=== PATIENT | female | born 1940 | race Caucasian/White ===

== ENCOUNTER 2017-03-28 17:16 | Emergency (ER) | payer MEDICARE ==
[2017-03-28 23:53] LABS: BASO # 0.1 10^3/uL (0.0-0.2); BASO % 0.5 % (0.0-1.0); EOS # 0.2 10^3/uL (0.0-0.50); EOS % 1.9 % (0.0-3.0); HEMATOCRIT 45.2 % (36.0-47.0); HEMOGLOBIN 15.3 g/dl (12.0-16.0); IMMATURE GRANULOCYTE % 0.2 % (0-0); LYMPH % 41.3 % (24.0-44.0); MEAN CORPUSCULAR HEMOGLOBIN 30.2 pg (27.0-33.0); MEAN CORPUSCULAR HGB CONC 33.8 g/dl (32.0-36.5); MEAN CORPUSCULAR VOLUME 89.3 fl (80.0-96.0); MONO # 0.7 10^3/uL (0.0-0.8); MONO % 6.9 % (0.0-5.0); NEUTROPHILS # 4.7 10^3/uL (1.8-7.7); NEUTROPHILS % 49.2 % (36.0-66.0); PLATELET COUNT, AUTOMATED 245 10^3/uL (150-450); RED BLOOD COUNT 5.06 10^6/uL (4.00-5.40); RED CELL DISTRIBUTION WIDTH 13.6 % (11.5-14.5); WHITE BLOOD COUNT 9.6 10^3/uL (4.0-10.0)
[2017-03-29 00:45] LABS: ALBUMIN 3.8 GM/DL (3.2-5.2); ALKALINE PHOSPHATASE 66 U/L (45-117); ALT/SGPT 36 U/L (12-78); ANION GAP 6 MEQ/L (8-16); AST/SGOT 46 U/L (7-37); BILIRUBIN,DIRECT 0.2 MG/DL (0.0-0.2); BILIRUBIN,TOTAL 0.6 MG/DL (0.2-1.0); BLOOD UREA NITROGEN 8 MG/DL (7-18); CARBON DIOXIDE LEVEL 32 MEQ/L (21-32); CHLORIDE LEVEL 103 MEQ/L (98-107); CPK CREATINE PHOSPHOKINASE 72 U/L (26-192); CREATININE FOR GFR 0.84 MG/DL (0.55-1.02); GLOMERULAR FILTRATION RATE > 60.0 (>39); GLUCOSE, FASTING 135 MG/DL (83-110); POTASSIUM SERUM 3.9 MEQ/L (3.5-5.1); SODIUM LEVEL 141 MEQ/L (136-145); TROPONIN I < 0.02 NG/ML (< 0.10)
[2017-03-29 00:46] LABS: MB/CK RELATIVE INDEX 1.38 (< OR =4); NT-PRO BNP 773 PG/ML (<450)
== END 2017-03-29 01:25 | disposition home or self-care (01) ==
LOC: M ED 03-29 01:25
DX: R60.0 Localized edema (principal); I50.9 Heart failure, unspecified; I45.10 Unspecified right bundle-branch block; I44.4 Left anterior fascicular block; I11.0 Hypertensive heart disease with heart failure; K21.9 Gastro-esophageal reflux disease without esophagitis; E11.9 Type 2 diabetes mellitus without complications; E03.9 Hypothyroidism, unspecified; Z79.899 Other long term (current) drug therapy; Z79.891 Long term (current) use of opiate analgesic; Z91.041 Radiographic dye allergy status; Z88.8 Allergy status to other drugs, medicaments and biological substances; Z88.6 Allergy status to analgesic agent; Z88.1 Allergy status to other antibiotic agents; Z91.02 Food additives allergy status; Z88.0 Allergy status to penicillin; Z88.2 Allergy status to sulfonamides
CPT/HCPCS: 71046

== ENCOUNTER → 2017-05-11 | Outpatient (REF) | payer MEDICARE ==
[2017-05-11 20:53] LABS: ALBUMIN 3.9 GM/DL (3.2-5.2); ALBUMIN/GLOBULIN RATIO 0.95 (1.00-1.93); ALKALINE PHOSPHATASE 67 U/L (45-117); ALT/SGPT 32 U/L (12-78); AMYLASE 59 U/L (25-115); ANION GAP 8 MEQ/L (8-16); AST/SGOT 32 U/L (7-37); BILIRUBIN,TOTAL 0.6 MG/DL (0.2-1.0); BLOOD UREA NITROGEN 11 MG/DL (7-18); CALCIUM LEVEL 9.2 MG/DL (8.8-10.2); CARBON DIOXIDE LEVEL 30 MEQ/L (21-32); CHLORIDE LEVEL 104 MEQ/L (98-107); CREATININE FOR GFR 0.97 MG/DL (0.55-1.30); GLOMERULAR FILTRATION RATE 59.4 (>39); GLUCOSE, FASTING 100 MG/DL (70-100); LIPASE 168 U/L (73-393); POTASSIUM SERUM 4.3 MEQ/L (3.5-5.1); SODIUM LEVEL 142 MEQ/L (136-145)
[2017-05-11 21:34] LABS: BASO % 0.5 % (0.0-1.0); EOS # 0.2 10^3/uL (0.0-0.50); EOS % 2.4 % (0.0-3.0); HEMATOCRIT 44.6 % (36.0-47.0); HEMOGLOBIN 14.4 g/dl (12.0-16.0); IMMATURE GRANULOCYTE % 0.2 % (0-3.0); LYMPH # 3.2 10^3/uL (1.5-4.5); LYMPH % 39.1 % (24.0-44.0); MEAN CORPUSCULAR HEMOGLOBIN 29.9 pg (27.0-33.0); MEAN CORPUSCULAR HGB CONC 32.3 g/dl (32.0-36.5); MEAN CORPUSCULAR VOLUME 92.5 fl (80.0-96.0); MONO # 0.7 10^3/uL (0.0-0.8); MONO % 8.7 % (0.0-5.0); NEUTROPHILS % 49.1 % (36.0-66.0); PLATELET COUNT, AUTOMATED 296 10^3/uL (150-450); RED BLOOD COUNT 4.82 10^6/uL (4.00-5.40); RED CELL DISTRIBUTION WIDTH 13.2 % (11.5-14.5); WHITE BLOOD COUNT 8.2 10^3/uL (4.0-10.0)
== END ==
LOC: M LAB REF 19:38
DX: R19.7 Diarrhea, unspecified (principal)
CPT/HCPCS: 82150

== ENCOUNTER → 2017-06-11 | Outpatient (REF) | payer MEDICARE ==
[2017-06-11 14:55] LABS: ERYTHROCYTE SEDIMENTATION RATE 8 mm/hr (0-30)
[2017-06-11 15:01] LABS: C REACTIVE PROTEIN QUANTITATIV < 0.30 MG/DL (0.00-0.30)
== END ==
LOC: M LAB REF 13:28
DX: H57.12 Ocular pain, left eye (principal)
CPT/HCPCS: 86140

== ENCOUNTER → 2017-07-15 | Outpatient (REF) | payer MEDICARE, BC ==
[2017-07-15 12:45] LABS: BASO # 0.1 10^3/uL (0.0-0.2); BASO % 0.8 % (0.0-1.0); EOS # 0.2 10^3/uL (0.0-0.50); EOS % 2.2 % (0.0-3.0); HEMATOCRIT 42.3 % (36.0-47.0); HEMOGLOBIN 14.1 g/dl (12.0-15.5); IMMATURE GRANULOCYTE % 0.3 % (0-3.0); LYMPH # 3.2 10^3/uL (1.5-4.5); LYMPH % 35.3 % (24.0-44.0); MEAN CORPUSCULAR HEMOGLOBIN 30.3 pg (27.0-33.0); MEAN CORPUSCULAR HGB CONC 33.3 g/dl (32.0-36.5); MEAN CORPUSCULAR VOLUME 90.8 fl (80.0-96.0); MONO # 0.7 10^3/uL (0.0-0.8); MONO % 7.9 % (0.0-5.0); NEUTROPHILS # 4.9 10^3/uL (1.8-7.7); NEUTROPHILS % 53.5 % (36.0-66.0); PLATELET COUNT, AUTOMATED 242 10^3/uL (150-450); RED BLOOD COUNT 4.66 10^6/uL (4.00-5.40); RED CELL DISTRIBUTION WIDTH 13.4 % (11.5-14.5); WHITE BLOOD COUNT 9.1 10^3/uL (4.0-10.0)
[2017-07-15 14:15] LABS: ALBUMIN 3.7 GM/DL (3.2-5.2); ALKALINE PHOSPHATASE 64 U/L (45-117); ALT/SGPT 34 U/L (12-78); ANION GAP 7 MEQ/L (8-16); AST/SGOT 40 U/L (7-37); BILIRUBIN,TOTAL 0.4 MG/DL (0.2-1.0); BLOOD UREA NITROGEN 11 MG/DL (7-18); CALCIUM LEVEL 8.7 MG/DL (8.8-10.2); CARBON DIOXIDE LEVEL 29 MEQ/L (21-32); CHLORIDE LEVEL 108 MEQ/L (98-107); CHOLESTEROL LEVEL 167 MG/DL (<200); CHOLESTEROL RISK RATIO 5.758 (<5); CREATININE FOR GFR 0.97 MG/DL (0.55-1.30); ESTIMATED AVERAGE GLUCOSE 143 MG/DL (60-110); FREE T4 1.08 NG/DL (0.76-1.46); GLOMERULAR FILTRATION RATE 59.4 (>39); GLUCOSE, FASTING 121 MG/DL (70-100); HDL CHOLESTEROL 29 MG/DL (>40); HEMOGLOBIN A1c 6.6 %; LDL CHOLESTEROL 94.8 MG/DL (<100); NON-HDL-C 138 MG/DL; POTASSIUM SERUM 4.6 MEQ/L (3.5-5.1); SODIUM LEVEL 144 MEQ/L (136-145); TOTAL PROTEIN 7.8 GM/DL (6.4-8.2); TRIGLYCERIDES LEVEL 216 MG/DL (<150)
== END ==
LOC: M SFHCADAM 10:57
DX: Z00.00 Encounter for general adult medical examination without abnormal findings (principal); E11.9 Type 2 diabetes mellitus without complications
CPT/HCPCS: 84443

== ENCOUNTER → 2017-07-30 | Outpatient (CLI) | payer MEDICARE, BC | LOC: M RAD 14:03 | DX: D35.2 Benign neoplasm of pituitary gland (principal); I67.82 Cerebral ischemia | CPT/HCPCS: 70450 ==

== ENCOUNTER → 2017-08-16 | Outpatient (REF) | payer MEDICARE ==
[2017-08-16 13:48] LABS: RHEUMATOID FACTOR QUANT < 10.0 IU/ML (<15.0)
[2017-08-16 14:04] LABS: ERYTHROCYTE SEDIMENTATION RATE 10 mm/hr (0-30)
[2017-08-17 14:13] LABS: ANTI DOUBLE STRAND-DNA AB 1 IU/mL (0-9); ANTINUCLEAR ANTIBODIES DIRECT Positive (Negative); RNP ANTIBODIES <0.2 AI (0.0-0.9); SJOGREN'S ANTI SS-A >8.0 AI (0.0-0.9); SJOGREN'S ANTI SS-B <0.2 AI (0.0-0.9); SMITH ANTIBODIES <0.2 AI (0.0-0.9)
== END ==
LOC: M LABNEURO 09:56
DX: G43.909 Migraine, unspecified, not intractable, without status migrainosus (principal)
CPT/HCPCS: 36415

== ENCOUNTER → 2018-02-14 | Outpatient (REF) | payer MEDICARE, BC ==
[2018-02-14 20:04] LABS: BASO # 0.1 10^3/uL (0.0-0.2); BASO % 0.6 % (0.0-1.0); EOS # 0.1 10^3/uL (0.0-0.50); EOS % 1.4 % (0.0-3.0); HEMATOCRIT 43.8 % (36.0-47.0); HEMOGLOBIN 14.2 g/dl (12.0-15.5); IMMATURE GRANULOCYTE % 0.1 % (0-3.0); LYMPH # 3.8 10^3/uL (1.5-4.5); LYMPH % 44.9 % (24.0-44.0); MEAN CORPUSCULAR HGB CONC 32.4 g/dl (32.0-36.5); MEAN CORPUSCULAR VOLUME 92.6 fl (80.0-96.0); MONO # 0.8 10^3/uL (0.0-0.8); NEUTROPHILS # 3.8 10^3/uL (1.8-7.7); PLATELET COUNT, AUTOMATED 251 10^3/uL (150-450); RED BLOOD COUNT 4.73 10^6/uL (4.00-5.40); RED CELL DISTRIBUTION WIDTH 13.8 % (11.5-14.5); WHITE BLOOD COUNT 8.6 10^3/uL (4.0-10.0)
[2018-02-14 20:21] LABS: ESTIMATED AVERAGE GLUCOSE 146 MG/DL (60-110); HEMOGLOBIN A1c 6.7 %
[2018-02-14 20:39] LABS: ALKALINE PHOSPHATASE 57 U/L (45-117); ALT/SGPT 21 U/L (12-78); ANION GAP 9 MEQ/L (8-16); AST/SGOT 30 U/L (7-37); BILIRUBIN,TOTAL 0.4 MG/DL (0.2-1.0); BLOOD UREA NITROGEN 7 MG/DL (7-18); CALCIUM LEVEL 8.2 MG/DL (8.8-10.2); CARBON DIOXIDE LEVEL 32 MEQ/L (21-32); CHLORIDE LEVEL 102 MEQ/L (98-107); CREATININE FOR GFR 0.97 MG/DL (0.55-1.30); GLOMERULAR FILTRATION RATE 59.3 (>39); GLUCOSE, FASTING 126 MG/DL (70-100); POTASSIUM SERUM 3.3 MEQ/L (3.5-5.1); SODIUM LEVEL 143 MEQ/L (136-145)
[2018-02-14 20:40] LABS: ALBUMIN 3.7 GM/DL (3.2-5.2); TOTAL PROTEIN 7.4 GM/DL (6.4-8.2)
== END ==
LOC: M SFHCADAM 15:16
DX: E11.9 Type 2 diabetes mellitus without complications (principal); R68.89 Other general symptoms and signs; N95.1 Menopausal and female climacteric states
CPT/HCPCS: 84443

== ENCOUNTER 2018-09-29 18:57 | Inpatient (IN) | payer BC, MEDICARE ==
[~2018-09-29] VITALS: Ht 167.6 cm; Wt 66.3 kg
[~2018-09-29 18:57] MED LIST: ALPR2TAB3 PO; CLON0.2T PO; GAS-125C PO; GLIP10TA6 PO; LASI20TA3 PO; METO100T5 PO; NORC1TAB7 PO; OMEP40CA2 PO; RANI15TA PO; SYNT50TA PO; VITA-182 PO; VITA50005 PO
[2018-09-29 19:46] LABS: BASO # 0.1 10^3/uL (0.0-0.2); BASO % 0.5 % (0.0-1.0); EOS % 0.4 % (0.0-3.0); HEMATOCRIT 45.7 % (36.0-47.0); HEMOGLOBIN 15.4 g/dl (12.0-15.5); LYMPH # 3.6 10^3/uL (1.5-4.5); LYMPH % 35.4 % (24.0-44.0); MEAN CORPUSCULAR HEMOGLOBIN 31.6 pg (27.0-33.0); MEAN CORPUSCULAR HGB CONC 33.7 g/dl (32.0-36.5); MEAN CORPUSCULAR VOLUME 93.8 fl (80.0-96.0); MONO % 10.2 % (0.0-5.0); NEUTROPHILS # 5.4 10^3/uL (1.8-7.7); NEUTROPHILS % 53.3 % (36.0-66.0); PLATELET COUNT, AUTOMATED 294 10^3/uL (150-450); RED BLOOD COUNT 4.87 10^6/uL (4.00-5.40); WHITE BLOOD COUNT 10.1 10^3/uL (4.0-10.0)
[2018-09-29 19:55] LABS: INR 1.13; PROTHROMBIN TIME 14.2 SECONDS (11.8-14.0)
[2018-09-29 19:56] LABS: PARTIAL THROMBOPLASTIN TIME 37.7 SECONDS (25.0-38.4)
[2018-09-29 20:24] LABS: ALBUMIN 3.9 GM/DL (3.2-5.2); BILIRUBIN,DIRECT 0.3 MG/DL (0.0-0.2); BILIRUBIN,TOTAL 0.9 MG/DL (0.2-1.0); CALCIUM LEVEL 9.5 MG/DL (8.8-10.2); CREATININE FOR GFR 1.04 MG/DL (0.55-1.30); GLOMERULAR FILTRATION RATE 54.6 (>39); MB/CK RELATIVE INDEX 1.35 (< OR =4); POTASSIUM SERUM 3.7 MEQ/L (3.5-5.1); THYROID STIMULATING HORMONE 4.61 uIU/ML (0.358-3.740); TOTAL PROTEIN 8.1 GM/DL (6.4-8.2); TROPONIN I 0.29 NG/ML (< 0.10)
[2018-09-29] MEDS ORDERED: LABETALOL HCL 100 MG/20 ML VIAL IV STA (20:28)
[2018-09-29] MEDS ORDERED: ALPR0.5T3 PO (20:53)
[2018-09-29] MEDS ORDERED: CLON-412 PO (20:53)
[2018-09-29] MEDS ORDERED: OMEP-221 PO (20:56)
[2018-09-29] MEDS ORDERED: NORT10CA2 PO (20:56)
[2018-09-29] MEDS: ATORVASTATIN 20 MG TAB PO SCH (21:00)
[2018-09-29] MEDS: HumaLOG INSULIN (NovoLOG) PER UNIT SC SCH (21:00)
--- NOTE | 2018-09-29 21:56 | REPVR ---
EXAM: CT Head Without Contrast EXAM DATE/TIME: 09/29/2018 8:51 PM CLINICAL HISTORY: 78 years old, female; Altered mental status/memory loss; Confusion or disorientation; Additional info: HTN altered TECHNIQUE: Imaging protocol: Computed tomography images of the head without contrast. Radiation optimization: All CT scans at this facility use at least one of these dose optimization techniques: automated exposure control; mA and/or kV adjustment per patient size (includes targeted exams where dose is matched to clinical indication); or iterative reconstruction. COMPARISON: CT Head without contrast 07/30/2017 2:25 PM FINDINGS: Brain: Patchy areas of hypoattenuation in the periventricular and subcortical white matter, consistent with chronic small vessel ischemic disease. No CT evidence of acute intracranial hemorrhage or acute territorial infarction. No significant mass effect or midline shift. Basal cisterns patent. Ventricles: Prominence of the cortical sulci, cisterns and ventricular system, consistent with cerebral and cerebellar volume loss. Bones/joints: No acute osseous abnormality. Sinuses: Mild ethmoid mucosal thickening. Mastoid air cells: Grossly unremarkable. Soft tissues: Grossly unremarkable. Vasculature: Mild calcific atherosclerotic disease in the cavernous internal carotid arteries. IMPRESSION: 1. No CT evidence of acute intracranial pathology. 2. Additional findings, as above. Electronically signed by: Dane Bueno On 09/29/2018 21:56:30 PM
--- NOTE | 2018-09-29 22:03 | REPVR ---
EXAM: CT Abdomen and Pelvis Without Contrast EXAM DATE/TIME: 09/29/2018 8:51 PM CLINICAL HISTORY: 78 years old, female; Abdominal pain; Generalized; Additional info: Generalized abd pain TECHNIQUE: Imaging protocol: Axial computed tomography images of the abdomen and pelvis without contrast. Radiation optimization: All CT scans at this facility use at least one of these dose optimization techniques: automated exposure control; mA and/or kV adjustment per patient size (includes targeted exams where dose is matched to clinical indication); or iterative reconstruction. COMPARISON: NM-Gastric Emptying Study 07/16/2015 12:31 PM FINDINGS: Lungs: Minimal linear stranding and groundglass at the lung bases, likely due to atelectasis and/or scarring. Mediastinum: Small hiatal hernia. Liver: Unremarkable. Gallbladder and bile ducts: Status post cholecystectomy. No biliary ductal dilatation. Pancreas: Unremarkable. Spleen: Unremarkable. Adrenals: Unremarkable. Kidneys and ureters: No mass. No radiodense calculi. No hydronephrosis. Stomach and bowel: No bowel wall thickening. No obstruction. No pneumatosis. Appendix: Appendix not identified with certainty but no right lower quadrant inflammatory change to suggest acute appendicitis. Intraperitoneal space: No free fluid. No organized fluid collection. No free air. Vasculature: Moderate atherosclerotic disease. Multifocal aneurysmal dilatation of the infrarenal abdominal aorta to approximately 3.4 cm. Lymph nodes: No pathologically enlarged lymph nodes. Bladder: Unremarkable. Reproductive: Status post hysterectomy. Bones/joints: No acute osseous abnormality. Osteopenia. Mild degenerative changes. Soft tissues: Unremarkable. IMPRESSION: 1. Limited noncontrast examination without CT evidence of acute intra-abdominal or pelvic pathology. 2. Additional findings, as above. Electronically signed by: Dane Bueno On 09/29/2018 22:02:44 PM
--- NOTE | 2018-09-29 22:35 | HPEPDOC ---
General Date of Admission Date of Service: Sep 29, 2018 Chief Complaint The patient is a 78-year-old female admitted with a reason for visit of Nausea. History of Present Illness Patient is a 78-year-old female, past medical history significant for hypertension, type 2 diabetes mellitus, obesity, hypothyroidism, presenting to the emergency room on account of generalized weakness, shaking, and generalized malaise. History was provided by family at bedside given patient's underlying dementia. Daughter reports patient's blood pressure had been running high and patient had not been feeling well for about 3 days now. They were uncertain if she had been taking her medications for blood pressure control as directed due to dementia. Blood glucose had also been elevated at home. They took her to urgent care where blood pressure was found to be 205/153. EKG was abnormal and patient was sent to the emergency room by EMS services for further evaluation. Patient's daughter reports patient had symptoms of generalized weakness, malaise, since Wednesday. But she still went on a boat cruise with other family members and on return had significant nausea without vomiting. She also complained of abdominal pain and was getting increasingly incoherent worse than her known baseline. On assessment, patient complains of headache, tiredness, but denies chest pain or shortness of breath In the emergency room, patient was given labetalol, with some improvement of her blood pressure. A CT scan of brain was negative for acute intracranial pathology. CT abdomen and pelvis completed without contrast was negative for acute intact, abdominal or pelvic pathology. . Home Medications Scheduled Alprazolam (Alprazolam) 0.5 Mg Tablet, 0.5 MG PO Q6H, (Reported) Clonidine HCl (Clonidine HCl) 0.1 Mg Tablet, 0.1 MG PO BID, (Reported) Glipizide (Glipizide) 10 Mg Tab, 10 MG PO DAILY, (Reported) Levothyroxine Sodium (Synthroid) 50 Mcg Tab, 50 MCG PO DAILY, (Reported) Metoprolol Tartrate (Metoprolol Tartrate) 100 Mg Tab, 100 MG PO BID, (Reported) Nortriptyline HCl (Nortriptyline HCl) 10 Mg Capsule, 20 MG PO QHS, (Reported) Omeprazole (Omeprazole) 40 Mg Capsule.dr, 40 MG PO DAILY, (Reported) Scheduled PRN Hydrocodone/Acetaminophen ([place] 5-325 Tablet) 1 Tab Tab, 1 TAB PO TID PRN for PAIN, (Reported) Allergies Coded Allergies: Contrast Media (Verified Allergy, Unknown, 08/01/15) Penicillins (Verified Allergy, Unknown, 09/29/18) Sulfa (Sulfonamide Antibiotics) (Verified Allergy, Unknown, 09/29/18) acetaminophen (Verified Allergy, Unknown, 09/29/18) amlodipine (Verified Allergy, Unknown, 09/29/18) butorphanol (Verified Allergy, Unknown, 09/29/18) dexlansoprazole (Verified Allergy, Unknown, 09/29/18) diphenhydramine (Verified Allergy, Unknown, 09/29/18) erythromycin base (Verified Allergy, Unknown, 09/29/18) ezetimibe (Verified Allergy, Unknown, 09/29/18) gemfibrozil (Verified Allergy, Unknown, 09/29/18) hydrochlorothiazide (Verified Allergy, Unknown, 09/29/18) iodine (Verified Allergy, Unknown, 09/29/18) ketorolac (Verified Allergy, Unknown, 09/29/18) lisinopril (Verified Allergy, Unknown, 09/29/18) losartan (Verified Allergy, Unknown, 09/29/18) moxifloxacin (Verified Allergy, Unknown, 09/29/18) potassium (Verified Allergy, Unknown, 09/29/18) pregabalin (Verified Allergy, Unknown, 09/29/18) procaine (Verified Allergy, Unknown, 09/29/18) propoxyphene (Verified Allergy, Unknown, 09/29/18) sucralfate (Verified Allergy, Unknown, 09/29/18) sumatriptan (Verified Allergy, Unknown, 09/29/18) topiramate (Verified Allergy, Unknown, 09/29/18) Past Medical History Medical History Hypertension Type 2 diabetes mellitus GERD Migraine headaches Anxiety Hypothyroidism Small infrarenal abdominal aortic aneurysm Surgical History Hysterectomy Appendectomy. Tonsillectomy and adenoidectomy Cholecystectomy Family History Mother: Leukemia. Sibling: Breast cancer, COPD Social History * Smoker: Denies Alcohol: Denies Drugs: denies A-FIB/CHADSVASC A-FIB History Current/History of A-Fib/PAF?: No Current PO Anticoag Therapy: No Review of Systems Other systems Review of systems was limited due to underlyinhg dementia Physical Examination Other physical findings GENERAL: NAD SKIN : Warm, dry intact HEENT: Atraumatic, normocephalic, PERRL, moist mucous membrane CARDIOVASCULAR: Regular rate and rhythm, S1S2, no JVD, no edema, distal pulses + and palpable RESP: CTAB, no accessory muscle use noted ABDOMEN: BS+ non distended non tender MS: no joint deformities NEURO: Alert and oriented x 3, confused about direct questions. CN2-12 grossly intact PSYCH: anxious Vital Signs Vital Signs Date Time Temp Pulse Resp B/P (MAP) Pulse Ox O2 Delivery O2 Flow Rate FiO2 09/29/18 21:07 170/77 (108) 09/29/18 21:01 126 09/29/18 20:57 95 09/29/18 20:19 98.5 21 Room Air Laboratory Data Labs 24H Laboratory Tests 2 09/29/18 19:38: Immature Granulocyte % (Auto) 0.2, White Blood Count 10.1H, Red Blood Count 4 .87, Hemoglobin 15.4, Hematocrit 45.7, Mean Corpuscular Volume 93.8, Mean Corpuscular Hemoglobin 31.6, Mean Corpuscular Hemoglobin Concent 33.7, Red Cell Distribution Width 14.6H, Platelet Count 294, Neutrophils (%) (Auto) 53.3, Lymphocytes (%) (Auto) 35.4, Monocytes (%) (Auto) 10.2H, Eosinophils (%) (Auto) 0.4, Basophils (%) (Auto) 0.5, Neutrophils # (Auto) 5.4, Lymphocytes # (Auto) 3.6, Monocytes # (Auto) 1.0H, Eosinophils # (Auto) 0.0, Basophils # (Auto) 0.1, Nucleated Red Blood Cells % (auto) 0.0, Prothrombin Time 14.2H, Prothromb Time International Ratio 1.13, Activated Partial Thromboplast Time 37.7, Anion Gap 10, Glomerular Filtration Rate 54.6, Calcium Level 9.5, Aspartate Amino Transf (AST/SGOT) 35, Alanine Aminotransferase (ALT/SGPT) 24, Alkaline Phosphatase 54, Total Bilirubin 0.9, Direct Bilirubin 0.3H, Total Creatine Kinase 370H, Creatine Kinase MB 5.0H, Creatine Kinase MB Relative Index 1.35, Troponin I 0.29H, Total Protein 8.1, Albumin 3.9, Albumin/Globulin Ratio 0.93L, Lipase 78, Thyroid Stimulating Hormone (TSH) 4.610H, Free Thyroxine 1.00 CBC/BMP Laboratory Tests 09/29/18 19:38 Red Blood Count 4.87, Mean Corpuscular Volume 93.8, Mean Corpuscular Hemoglobin 31.6, Mean Corpuscular Hemoglobin Concent 33.7, Red Cell Distribution Width 14.6 H, Neutrophils (%) (Auto) 53.3, Lymphocytes (%) (Auto) 35.4, Monocytes (%) (Auto) 10.2 H, Eosinophils (%) (Auto) 0.4, Basophils (%) (Auto) 0.5, Neutrophils # (Auto) 5.4, Lymphocytes # (Auto) 3.6, Monocytes # (Auto) 1.0 H, Eosinophils # (Auto) 0.0, Basophils # (Auto) 0.1 Assessment/Plan Hypertensive emergency -Presenting with complaints of headache, generalized malaise, and elevated troponin at 0.29 -Restart patient on home medications clonidine and metoprolol -Trend cardiac biomarkers troponins every 4 hours -2-D echocardiogram to evaluate ejection fraction, rule out regional wall motion abnormalities -Cardiology's will need to be consulted for input input given abnormal troponins, abnormal EKG, blood pressure elevation, and patient's underlying risk factors with DM, HTN, and advanced age -CAD risk factor modifications with blood pressure control, statin therapy, no aspirin due to possible allergy Type 2 diabetes mellitus -Caloric controlled diet -Finger stick checks prior to meals and at bedtime -Coverage with insulin per sliding scale protocol Chronic kidney disease stage III -Possibly due to nephrosclerosis and diabetic nephropathy -Avoid nephrotoxic medications -Monitor renal function and electrolytes Hypothyroidism -Continue Synthroid DVT prophylaxis -Lovenox daily Advance care directives -CODE STATUS is full resuscitation at this time -Anticipate discharge within 48 hours based on findings of a 2-D echocardiogram and cardiology recommendations. Plan / VTE VTE Prophylaxis Ordered?: Yes LYDIA HAMPTON [facility] Sep 29, 2018 22:35
[2018-09-29] MEDS ORDERED: METOPROLOL 5 MG/5 ML VIAL IV STA (23:05)
[2018-09-29] MEDS ORDERED: GLUCOSE 4 GM CHEW TABLET PO PRN (23:30)
[2018-09-29] MEDS ORDERED: GLUCAGON FOR INJ 1 MG VIAL (J1610) SC PRN (23:30)
[2018-09-29] MEDS ORDERED: DEXTROSE 50% 50 ML SYRINGE IV PRN (23:30)
[2018-09-29] MEDS: ALPRAZolam 0.5 MG TAB PO SCH (23:48)
[2018-09-29] MEDS: NORCO, ANEXSIA 5/325MG TABLET (HYDROcodone/ACETAMINOPHEN) PO PRN (23:48)
[2018-09-29] MEDS: METOPROLOL TARTRATE 100 MG TAB PO SCH (23:48)
[2018-09-30] VITALS (27 sets, daily range): BP systolic 101–223; BP diastolic 54–100
[2018-09-30] MEDS ORDERED: hydrALAZINE INJ 20 MG/ML VIAL IV ONE (04:45)
[2018-09-30] MEDS: LEVOTHYROXINE 50MCG TABLET (0.05MG) PO SCH (05:36)
[2018-09-30] MEDS: ALPRAZolam 0.5 MG TAB PO SCH ×3 (05:36→16:59)
[2018-09-30 06:26] LABS: HEMATOCRIT 44.4 % (36.0-47.0); HEMOGLOBIN 14.8 g/dl (12.0-15.5); MEAN CORPUSCULAR HEMOGLOBIN 31.2 pg (27.0-33.0); MEAN CORPUSCULAR HGB CONC 33.3 g/dl (32.0-36.5); MEAN CORPUSCULAR VOLUME 93.7 fl (80.0-96.0); PLATELET COUNT, AUTOMATED 262 10^3/uL (150-450); RED BLOOD COUNT 4.74 10^6/uL (4.00-5.40)
[2018-09-30 06:49] LABS: ALBUMIN 3.5 GM/DL (3.2-5.2); ALT/SGPT 21 U/L (12-78); BILIRUBIN,TOTAL 0.9 MG/DL (0.2-1.0); BLOOD UREA NITROGEN 12 MG/DL (7-18); CALCIUM LEVEL 9.1 MG/DL (8.8-10.2); CARBON DIOXIDE LEVEL 31 MEQ/L (21-32); CHLORIDE LEVEL 104 MEQ/L (98-107); CREATININE FOR GFR 0.89 MG/DL (0.55-1.30); GLOMERULAR FILTRATION RATE > 60.0 (>39); GLUCOSE, FASTING 142 MG/DL (70-100); POTASSIUM SERUM 3.7 MEQ/L (3.5-5.1); SODIUM LEVEL 140 MEQ/L (136-145); TOTAL PROTEIN 7.7 GM/DL (6.4-8.2); TROPONIN I 0.42 NG/ML (< 0.10)
--- NOTE | 2018-09-30 07:34 | REP ---
Chest three views including AP view with the patient sitting and the two lateral views: Comparisons are available on the PACS system for reasons unknown to this examiner. The lung gallo are clear. The cardiac size is normal. The ziggy, mediastinum, and skeletal structures are unremarkable. Impression: Negative AP and lateral chest. Electronically Signed by Sean Rdz MD 09/30/2018 07:25 A
[2018-09-30] MEDS ORDERED: cloNIDine 0.1 MG TAB PO SCH ×2 (09:00→21:00)
[2018-09-30] MEDS: METOPROLOL TARTRATE 100 MG TAB PO SCH (09:30)
[2018-09-30] MEDS: ENOXAPARIN 40 MG/0.4 ML SYRINGE (J1650) SC SCH (09:31)
[2018-09-30] MEDS: HumaLOG INSULIN (NovoLOG) PER UNIT SC SCH ×4 (09:31→20:22)
[2018-09-30] MEDS ORDERED: METOPROLOL TART 50 MG TAB PO SCH (12:00)
--- NOTE | 2018-09-30 13:15 | IPN ---
DATE: 09/30/2018 Lisbet is seen in intensive care unit (ICU). She was admitted last night with hypertensive emergency with advancement of encephalopathy. She is followed by Dr. Cailin Klein at the [facility]. She is transferring her care to a [place] provider and has an appointment coming up in October. Her medical history is significant for a high degree of noncompliance, several telephone encounters with this patient being out of her clonidine and not taking it for several days, not picking up prescriptions. She has dementia, confirmed by neuropsychiatric testing, history of migraine headaches, for which she follows with neurology (they prescribed nortriptyline but she never picked up the prescription). She has chronic headaches, for which she is taking hydrocodone on a frequency greater than prescribed. MEDICAL HISTORY: 1. Type 2 diabetes. 2. Hypothyroidism. 3. Gastroesophageal reflux disease (GERD). 4. Benign pituitary tumor with excision in 2011. 5. Gastroparesis on gastric emptying study from 08/28/2018. 6. Small superior mesenteric artery stenosis, approximately 60% stenosis on angiogram from 08/2011. 7. Small infrarenal abdominal aortic aneurysm 3.1 cm. 8. History of dementia. She denies any chest pain. No shortness of breath. She is confused. Her daughter is in the room, daughter Keith Pantoja. She insists that she was not at her baseline mental status. She has a headache. PHYSICAL EXAMINATION: When I examined her, her blood pressure was 193/79 and it went up to 195/100 while in the room, currently it is 140/68. GENERAL APPEARANCE: She is alert but confused. She does not answer questions appropriately. She does not know the month, year, date or the president. She does know that she is in [facility]. NECK: Supple. LUNGS: Clear. HEART: Regular rhythm, 1/6 systolic ejection murmur. ABDOMEN: Soft, nontender. No masses. EXTREMITIES: Trace peripheral edema. NEUROLOGIC: She moves arms and legs with equal strength. There is no focal weakness. She does have clonus of the lower extremities and is hyperreflexic. LABORATORIES: Blood sugars are around 150. Sodium 140, potassium 3.7, BUN 12, creatinine 0.8, glucose 142. White count 9, hemoglobin 14.8, platelets 262. Troponins are stable at 0.4. IMPRESSION: 1. Hypertensive emergency with prior hypertensive encephalopathy manifested by altered mental status and clonus. Gradual progressive reduction of blood pressure. She has already reached that goal by this afternoon. I had a long discussion with Keith, her daughter, about the importance of compliance with her medications and how noncompliance has created risk of stroke, myocardial infarction or vascular event. 2. Hypothyroidism. Continue levothyroxine 50 mcg daily. TSH is mildly elevated, but I doubt she has been any more compliant with the levothyroxine than she has had with other medications. 3. Diabetes. She has glipizide 10 mg daily prescribed at home. She is on sliding scale insulin with coverage. Last hemoglobin A12/c was from 02/2018 and it was quite good at 6.8%. She is due to have another hemoglobin A1/c done but with the compliance problems, I think that I will just get it while she is in the hospital rather than rely on her to come for the office followup, of which she has missed several. 4. Hyperlipidemia. She is on 60 mg of atorvastatin daily, which we will continue. 5. Chronic headaches. Continue nortriptyline 20 mg at night. As needed Tylenol with hydrocodone advised, some of these headaches are probably rebound headaches from overuse of opiates.
--- NOTE | 2018-09-30 14:02 | REP ---
CT brain without contrast: History: Change in mental status. Comparison CT study is from the previous day September 29, 2018. CT findings: Preliminary digital classroom instructor radiograph is unremarkable. Bone window settings demonstrate vascular calcification. The visualized paranasal sinuses are clear. No bony calvarial defect is seen. On soft tissue window settings there is diffuse moderate atrophy again seen. There is no evidence of intracranial hemorrhage. There is no evidence of acute infarction. No extra-axial fluid collection or mass lesion is seen. Small vessel atherosclerotic changes are again noted as before. Impression: Diffuse atrophy, vascular calcification, small vessel changes. No acute intracranial abnormality. No change from the CT study done the previous day. Electronically Signed by Noe Elder MD 09/30/2018 02:31 P
[2018-09-30] MEDS ORDERED: ASPIRIN 81 MG CHEW TABLET PO ONE (15:00)
[2018-09-30] MEDS: NORCO, ANEXSIA 5/325MG TABLET (HYDROcodone/ACETAMINOPHEN) PO PRN (15:17)
[2018-09-30] MEDS ORDERED: MAG SULF 1GM/100ML (MAG RUN) 1 GM in APPROPRIATE DILUENT 1 EA IV ONE ×2 (16:00→17:00)
[2018-09-30] MEDS: NITROGLYCERIN 0.2 MG/HR PATCH TD SCH (16:58)
[2018-09-30] MEDS: amLODIPine 5 MG TAB PO SCH (16:59)
[2018-09-30] MEDS ORDERED: ONDANSETRON 4MG/2ML VIAL (J2405) IV PRN (17:15)
[2018-09-30] MEDS ORDERED: KCL 10MEQ/100ML SWI (KRUN) 10 MEQ in APPROPRIATE DILUENT 1 EA IV ONE (18:00)
--- NOTE | 2018-09-30 18:19 | ECHO ---
DATE OF PROCEDURE: 09/30/2018 REFERRING INDIVIDUAL: Roslyn Chowdary, [employer]SEM[employer]ER INDICATION: Cardiac dysrhythmias unspecified. HEIGHT: 66 inches WEIGHT: 68.3 kg 2D MEASUREMENTS: Aortic root: 3.1 cm Left atrium: 3.2 cm Ventricular septum: 1.19 cm Posterior wall: 1.24 cm Left ventricle diastole: 4.8 cm Inferior vena cava: 1.2 cm DOPPLER MEASUREMENTS: Mild aortic regurgitation. No aortic stenosis. Aortic valve velocity: 93.3 cm/s Mitral E velocity: 50.9 cm/s Mitral A velocity: 104 cm/s Mitral deceleration time: 237 ms Mild pulmonic regurgitation. No tricuspid regurgitation. Pulmonary artery systolic pressure: 24 mmHg. E prime septal: 2.72 cm/s E prime lateral: 3.26 cm/s DESCRIPTION: Rhythm was sinus. Image quality was fair. This was a 2D, M-mode, color flow Doppler and pulse wave Doppler examination and included mitral annular tissue Doppler. CONCLUSIONS: 1. Borderline concentric left ventricular hypertrophy. Normal regional left ventricular (LV) wall motion and wall thickening. Normal LV systolic function. Left ventricular ejection fraction (LVEF) 60% by visual estimate. Grade 1 LV diastolic dysfunction (impaired relaxation filling pattern). Normal right ventricular (RV) systolic function and size. 2. Mild aortic valve sclerosis of a 3-cusp aortic valve. Mild aortic regurgitation. 3. Mild mitral annular calcification. No mitral regurgitation. 4. No pericardial effusion.
[2018-09-30] MEDS ORDERED: PILL CUTTER 1 EACH XX PRN (19:00)
--- NOTE | 2018-09-30 19:46 | CR ---
DATE OF CONSULTATION: 09/30/2018 REFERRING INDIVIDUAL: Roslyn AragonFAUSTO bello INDICATION: Abnormal troponin I. HISTORY OF THE PRESENT ILLNESS: At present, the patient is a fairly poor historian. Historical information was obtained from the patient's current electronic medical record as well as some additional information supplemented from one of the patient's daughters who was present at the bedside. The patient was admitted to the hospital yesterday (09/29/2018) with complaints of nausea and was found to have hypertensive emergency. She had an initial troponin I of 0.29. She also had complaints of headache and generalized malaise. In speaking with Mr. Davis, who let me know about the consult late this evening, he tells me that the patient has a history of medication noncompliance. It is unclear how compliant the patient was at home with her antihypertensive agents. With her course in the hospital so far, she developed altered mental status and when her blood pressure transiently dropped, she developed some neurologic symptoms and neurology has been consulted. The patient denies any chest pain or chest discomfort, exertional dyspnea, orthopnea, paroxysmal nocturnal dyspnea (PND), peripheral edema, palpitations, or claudication. ALLERGIES: Listed as follows: CONTRAST MEDIA (unknown reaction). PENICILLINS (unknown reaction). SULFA (unknown reaction). ACETAMINOPHEN, AMLODIPINE (unknown reaction). BUTORPHANOL. DEXLANSOPRAZOLE. DIPHENHYDRAMINE. ERYTHROMYCIN. ZETIA. GEMFIBROZIL. HYDROCHLOROTHIAZIDE (unknown side effect). IODINE. KETOROLAC. LISINOPRIL (unknown side effect). LOSARTAN (unknown side effect). MELOXICAM. POTASSIUM (unknown side effect). PREGABALIN. PROCAINE. PROPOXYPHENE. SUCRALFATE. SUMATRIPTAN. TOPIRAMATE. MEDICATIONS PRIOR TO ADMISSION: Are listed as: - alprazolam 0.5 mg every 6 hours - clonidine 0.1 mg twice a day - glipizide 10 mg daily - hydrocodone/acetaminophen - levothyroxine 50 mcg daily -metoprolol tartrate 100 mg twice a day - nortriptyline 20 mg nightly - omeprazole 40 mg daily The last date of any of these medications prior to admission is not known. PATIENT'S CURRENT MEDICATIONS IN HOSPITAL PRIOR TO MY INTERVENTION WERE FOLLOWS: - nortriptyline 20 mg nightly - metoprolol tartrate 50 mg by mouth every 6 hours - clonidine 0.1 mg twice a day - Lovenox 40 mg subcu daily - Humalog insulin per sliding scale - levothyroxine 50 mcg daily - alprazolam 0.5 mg by mouth every 6 hours - hydrocodone/acetaminophen - atorvastatin 60 mg nightly OTHER PAST MEDICAL AND SURGICAL HISTORY: Systemic hypertension, type 2 diabetes, gastroesophageal reflux disease (GERD), migraines, anxiety, hypothyroidism, intrarenal abdominal aortic aneurysm, status post hysterectomy, status post appendectomy, status post tonsillectomy and adenoidectomy, status post cholecystectomy. FAMILY HISTORY: Breast cancer and chronic obstructive pulmonary disease (COPD) in a sibling. Mother had leukemia. SOCIAL HISTORY: Denies cigarette smoking, alcohol, and illicit drugs. REVIEW OF SYSTEMS: Review of systems was not reliable on this patient due to her being a poor historian at this time. PHYSICAL EXAMINATION: Pleasant elderly woman who appears her chronologic age, who appears to be normal body weight. Height 66 inches, weight 68.3 kg, body mass index (BMI) 24.3. Temperature 97.2, pulse 71, blood pressure 218/93, oxygen (O2 saturation 95%. No conjunctival pallor, scleral icterus, or xanthomas. Only a few lower teeth were present, and they were in poor condition. Upper denture is present. Oral mucosa was moist and without pallor or cyanosis. Jugular venous pulsations were at 2 cm. Trachea midline. No palpable thyroid. No clubbing, nail bed cyanosis, or splinter hemorrhages. No skin lesions, skin pallor, or icterus. The patient was oriented to person and place but not to time. Her mood and affect appeared normal. Curvature of the spine was normal. Gait was not appropriate to test at this time as she is on bed rest and has altered mental status. Gross motor strength and tone appeared normal. No fasciculations or tremors. Respiratory expansion and effort were normal. No crackles or wheezes. No palpable apex beat. No parasternal lifts, heaves, thrills, or palpable heart sounds. First and second heart sounds were normal. No S3 or S4 or murmurs. Carotids were normal in volume and contour and without bruits. No palpable abdominal aorta. No abdominal bruits. Femoral pulses normal. Pedal pulses normal. No peripheral edema. Abdomen was soft, nontender with normal bowel sounds. No hepatosplenomegaly or other organomegaly. Liver span 12 cm in the right midclavicular line. Stool for occult blood not presently indicated. INVESTIGATIONS: I have independently visualized this patient's AP sitting and lateral chest x-ray acquired 09/29/2018 at 8:39 p.m. Difficult to assess for cardiomegaly due to the AP portable technique. No pulmonary vascular redistribution. No interstitial or alveolar edema. Some mild bilateral fibrotic changes were present in both lung gallo, especially towards the lung bases. Kyphosis present. CT brain without contrast 09/30/2018 reported diffuse atrophy, vascular calcification, small vessel changes. No acute intracranial abnormality. No change from CT study done the previous day. CT abdomen and pelvis without IV contrast 09/29/2018 reported no acute intraabdominal or pelvic pathology. Kidneys and ureters: No mass. No radiodense calculi. No hydronephrosis. Adrenals: Unremarkable. Vasculature: Moderate atherosclerotic disease. Multifocal aneurysmal dilatation of the infrarenal abdominal aorta up to approximately 3.4 cm. Status post cholecystectomy. Minimal linear stranding and ground glass at the lung bases. Small hiatal hernia. ECG: I have ordered a 12-lead electrocardiogram to be done on this patient. Laboratory work 09/29/2018: Hemoglobin 15.4, platelets 294, WBC 10.1. Sodium 143, potassium 3.7, chloride 104, CO2 of 29, BUN 12, creatinine 1.04, estimated GFR 54.6, glucose 135, calcium 9.5, CPK 370, CPK-MB 5.0, CPK-MB relative index 1.35%, troponin I 0.29, albumin 3.9, TSH 4.610, free T4 1.00, Laboratory work 09/30/2018 showed sodium 140, potassium 3.7, chloride 104, CO2 of 31, BUN 12, creatinine 0.89, estimated GFR greater than 60, glucose 142, magnesium 2.0, troponin I level 0.43 and 0.42, albumin 3.5. 1. Polymorphic ventricular tachycardia (Torsades de pointes). It is unclear what is causing recurrent Torsades de pointes. Her potassium and magnesium levels were normal. She is on nortriptyline, which can cause QT prolongation. I would suggest avoiding medications that can cause QT prolongation such as Zofran. I have discontinued nortriptyline. Dr. Davis ordered 1 gram of magnesium sulfate IV. I have ordered an additional 1 gram of magnesium sulfate IV as well. I also ordered a potassium chloride run of 10 mEq IV. Continue to observe patient in the intensive care unit (ICU) for management of polymorphic ventricular tachycardia as well as hypertensive emergency. Hopefully the Torsades de pointes will settle down with the additional magnesium and potassium. I would like to avoid excessive bradycardia, which may encourage Torsades de pointes. At this point, there is no strong indication to proceed with temporary pacing or anti-arrhythmic drugs. 2. Hypertensive emergency. It is difficult to know how compliant the patient has been with her antihypertensive agents at home. If she has been taking her clonidine and then miss taking clonidine, this can precipitate rebound hypertension. She has normal kidneys as reported by the CT of the abdomen, and her lab work this morning shows normal estimated GFR. She had a transient relative drop in her systolic blood pressure earlier today and developed some transient alteration in her mental status. I have decided ultimately to continue with clonidine 0.1 mg twice a day just in case clonidine withdrawal has been the reason for the precipitation of the hypertensive emergency. I am hoping that clonidine will not be needed snf as an antihypertensive agent in a patient who has questionable medication compliance but time will tell. Patient was unable to tell me what her allergic reactions were to prior antihypertensive agents that were listed as adverse drug reactions. True adverse drug reaction to amlodipine is uncommon excluding peripheral edema, which is an expected effect of the agent in a dose dependent fashion. I have gone ahead and added amlodipine 5 mg twice a day with blood pressure hold parameter. I changed metoprolol tartrate to Bystolic to take advantage of the vasodilatory properties of this third generation beta poli. I have added nitroglycerin patch 0.2 mg per hour. At this point I would not treat her hypertension with a diuretic. Will follow with you. For now I would be very happy with a target systolic blood pressure of 140 to 160 for the next few days. 3. Systemic hypertension. As per hypertensive emergency category above. 4. Abnormal ECG. I have ordered an ECG. 5. Abnormal troponin I. Troponin I levels thus far have been in the indeterminate range. She may have underlying coronary artery disease. The plan will be to arrange for her to have an outpatient cardiac nuclear stress test. ECG was ordered.
[2018-09-30] MEDS: ATORVASTATIN 20 MG TAB PO SCH (20:23)
[2018-09-30] MEDS: **NOTE PATIENT COMMENT** MISC XX SCH (20:24)
[2018-09-30] MEDS: cloNIDine 0.1 MG TAB PO SCH (20:24)
--- NOTE | 2018-09-30 20:57 | ECGEPIP ---
[facility] - ED Test Date: 2018-09-29 Pat Name: JONA MOORE Department: Room: [place] [address] Gender: Female Cath Lab Technologist: PERFECTO : 1940 Requested By: MANDY Olmdeo Order Number: [id number] Reading MD: John Calix Measurements Intervals [place] Rate: 126 P: 56 NC: 139 QRS: QRSD: 111 T: 60 QT: 415 QTc: 602 Interpretive Statements SINUS TACHYCARDIA INCOMPLETE RIGHT BUNDLE BRANCH BLOCK LEFT ANTERIOR FASCICULAR BLOCK ST DEVIATION AND MODERATE T-WAVE ABNORMALITY, CONSIDER ANTERIOR ISCHEMIA SIMILAR TO 03/28/17 Electronically Signed on 09-30-2018 20:56:48 EDT by John Calix
[2018-09-30] MEDS ORDERED: NORTRIPTYLINE 10 MG CAP PO SCH (21:00)
[2018-10-01] VITALS (19 sets, daily range): BP systolic 123–164; BP diastolic 58–74
[2018-10-01] MEDS: ALPRAZolam 0.5 MG TAB PO SCH ×5 (00:52→23:43)
[2018-10-01 04:39] LABS: HEMATOCRIT 40.6 % (36.0-47.0); HEMOGLOBIN 13.3 g/dl (12.0-15.5); MEAN CORPUSCULAR HEMOGLOBIN 30.6 pg (27.0-33.0); MEAN CORPUSCULAR HGB CONC 32.8 g/dl (32.0-36.5); MEAN CORPUSCULAR VOLUME 93.3 fl (80.0-96.0); PLATELET COUNT, AUTOMATED 271 10^3/uL (150-450); RED BLOOD COUNT 4.35 10^6/uL (4.00-5.40); WHITE BLOOD COUNT 10.9 10^3/uL (4.0-10.0)
[2018-10-01 05:09] LABS: HEMOGLOBIN A1c 6.5 %
[2018-10-01 05:10] LABS: CALCIUM LEVEL 8.8 MG/DL (8.8-10.2); CREATININE FOR GFR 1.01 MG/DL (0.55-1.30); GLOMERULAR FILTRATION RATE 56.4 (>39); POTASSIUM SERUM 3.8 MEQ/L (3.5-5.1)
[2018-10-01] MEDS: LEVOTHYROXINE 50MCG TABLET (0.05MG) PO SCH (06:31)
[2018-10-01] MEDS: ENOXAPARIN 40 MG/0.4 ML SYRINGE (J1650) SC SCH (08:19)
[2018-10-01] MEDS: NITROGLYCERIN 0.2 MG/HR PATCH TD SCH (08:19)
[2018-10-01] MEDS: NEBIVOLOL 5 MG TAB (BYSTOLIC) PO SCH (08:19)
[2018-10-01] MEDS: cloNIDine 0.1 MG TAB PO SCH (08:20)
[2018-10-01] MEDS: amLODIPine 5 MG TAB PO SCH ×2 (08:20→20:19)
[2018-10-01] MEDS: HumaLOG INSULIN (NovoLOG) PER UNIT SC SCH ×4 (08:20→20:18)
--- NOTE | 2018-10-01 09:02 | CR ---
DATE OF CONSULTATION: 09/30/2018 REFERRING PHYSICIAN: Camilo Davis MD REASON FOR CONSULTATION: Slurred speech and left-sided weakness. HISTORY OF PRESENT ILLNESS: Lisbet Childress is a 78-year-old woman who lives alone, but her daughter lives next door. The patient has not been compliant with her medications. She was diagnosed with beginning stages of dementia within last 1 year. She suddenly became confused yesterday. The family took her to urgent care, and her blood pressure was above 200. She was brought to [facility] Emergency Department. She was admitted at intensive care unit with hypertensive emergency. According to nurses, around 1:10 in the afternoon, the patient started staring off into space, and her left side became flaccid, and she had garbled speech. She was taken to CT scanner, which was reportedly unremarkable except small vessel ischemic disease of brain and atrophy of brain. Her symptoms improved significantly by 2:35 p.m.. By the time I saw the patient, she had two or three episodes of torsades and received magnesium. The patient also given Xanax 1/2 hour ago, and currently the patient is drowsy. She opens her eyes but does not follow commands. She appears to be moving both sides equally spontaneously. The patient has history of chronic headaches and was taking Vicodin. She also has anxiety and took 2-4 tablets of Xanax every day. She has history of intermittent chronic back pain. She had a pituitary tumor removed in 2011 at [facility]. There are no reports of neck pain, falls, head injuries, or loss of consciousness. 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 CURRENT MEDICATIONS: Bystolic, nortriptyline, Zofran, magnesium sulfate, Norvasc, levothyroxine, Xanax, Vicodin, Lipitor, and the patient received doses of clonidine and metoprolol when her blood pressure dropped to 101 systolic, and she had neurological symptoms. FAMILY HISTORY: Noncontributory. SOCIAL HISTORY: The patient lives alone, but her daughter lives next door. Denies smoking or alcohol intake. REVIEW OF SYSTEMS: All systems were reviewed with the patient's daughter and were noncontributory except as mentioned in history of present illness. PHYSICAL EXAMINATION: Systolic blood pressure 223/97 which had decreased to its lowest systolic blood pressure 101 at the time of her neurological symptoms this afternoon. Since then, her blood pressure has gone up again. She had received doses of clonidine and Lopressor. Pulse 61, respiratory rate 16, 92% saturations on room air. Heart: Regular rate and rhythm. Lungs: Clear to auscultation. Abdomen: Soft, nontender, nondistended. No pedal edema. No musculoskeletal abnormalities. No rash. No signs of meningeal irritation. No tremor. The patient is drowsy. She opens eyes to verbal commands and then falls asleep. She does not follow any commands. She received a dose of Xanax 1/2 hour ago. She moves her extremities spontaneously. She withdraws to pain. Sensory cerebellar and gait testing could not be performed. Deep tendon reflexes are 1+ in arms and knees and absent at ankles. DIAGNOSTIC STUDIES: CT scan of head showed small vessel ischemic disease of brain and mild atrophy. ASSESSMENT: 1. Hypertensive emergency. 2. There is concern for transient ischemic attack. 3. Sudden hypotension after severe hypertension can also trigger similar episode. Her systolic blood pressure had dropped to 101 suddenly at the time of her symptoms. 4. Torsades. PLAN: 1. MRI brain. 2. CT angiography of head and neck with contrast. 3. Aspirin 325 mg by mouth daily. 4. Keep systolic blood pressure below 180 and diastolic blood pressure below 100 and slowly bring down her blood pressure and treat her hypertensive emergency. Avoid hypotension. 5. Follow with our office in 2-4 weeks after hospital discharge.
--- NOTE | 2018-10-01 09:20 | IPN ---
DATE OF SERVICE: 10/01/2018 Lisbet was seen in intensive care unit (ICU). She seems to be better. She has not had any significant problems with torsades overnight. Appreciate Dr. Dela Cruz's consultation, which was reviewed, and the adjustment of her medications. I also spoke with Dr. Maharaj from neurology yesterday about the patient's transient hemiparesis, and his note is pending. Her mental status is still confused and disoriented. She denies any chest pain or shortness of breath. PHYSICAL EXAMINATION: 124/60, pulse 63. General appearance: Alert but does not answer questions very quickly. She does not know the month, the year, or where she is. HEENT: No facial droop or weakness. Lungs clear. Heart: Regular rate and rhythm. Abdomen: Soft, nontender. No peripheral edema. Moves arms and legs with equal strength. Lifts left side on command. White count 10.9, hemoglobin 13, platelets 271. Sodium 138, potassium 3.8, BUN 17, creatinine 1.0. IMPRESSION: 1. Hypertensive emergency with prior hypertensive encephalopathy. Blood pressure is down to acceptable range. She has had no recurrence of the hemiparesis. Appreciate cardiology input in adjusting her medications. She has a long documented history in her office chart of noncompliance with her medications. I agree with his concerns about using medicines such as clonidine that can precipitate withdrawal. 2. left hemiparesis. This has not recurred. I ordered an MRI scan, but it was not done. I do not think she could cooperate with this. Neurology's note is pending. We did discuss the case yesterday. 3. Hypothyroidism. Thyroid-stimulating hormone (TSH) is mildly elevated, but I suspect noncompliance with levothyroxine, so I am not adjusting dose. 4. Diabetes. Hemoglobin A1c is acceptable. She just has glipizide at home. I doubt her compliance with this.
--- NOTE | 2018-10-01 10:13 | ECGEPIP ---
[facility] Test Date: 2018-09-30 Pat Name: JONA MOORE Department: Room: [place] [address] Gender: Female Certified Recreational Therapist: : 1940 Requested By: Camilo Davis Order Number: [id number] Reading MD: Jimmie Dela Cruz Measurements Intervals [place] Rate: 68 P: 41 [place]: 151 QRS: QRSD: 118 T: QT: 523 QTc: 558 Interpretive Statements SINUS RHYTHM PATTERN CONSISTENT WITH PULMONARY DISEASE INCOMPLETE RIGHT BUNDLE BRANCH BLOCK LEFT ANTERIOR FASCICULAR BLOCK LEFT VENTRICULAR HYPERTROPHY AND ST-T CHANGE Consider myocardial ischemia Electronically Signed on 10-01-2018 10:13:26 EDT by Jimmie Dela Cruz
--- NOTE | 2018-10-01 10:16 | ECGEPIP ---
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
[2018-10-01] MEDS: ATORVASTATIN 20 MG TAB PO SCH (20:16)
[2018-10-01] MEDS: **NOTE PATIENT COMMENT** MISC XX SCH (20:19)
[2018-10-02] VITALS (9 sets, daily range): BP systolic 134–167; BP diastolic 63–95
[2018-10-02 04:32] LABS: HEMATOCRIT 44.4 % (36.0-47.0); HEMOGLOBIN 14.6 g/dl (12.0-15.5); MEAN CORPUSCULAR HEMOGLOBIN 30.9 pg (27.0-33.0); MEAN CORPUSCULAR HGB CONC 32.9 g/dl (32.0-36.5); MEAN CORPUSCULAR VOLUME 94.1 fl (80.0-96.0); PLATELET COUNT, AUTOMATED 288 10^3/uL (150-450); RED BLOOD COUNT 4.72 10^6/uL (4.00-5.40); WHITE BLOOD COUNT 10.4 10^3/uL (4.0-10.0)
[2018-10-02 04:49] LABS: CALCIUM LEVEL 9.5 MG/DL (8.8-10.2); CREATININE FOR GFR 1.06 MG/DL (0.55-1.30); GLOMERULAR FILTRATION RATE 53.4 (>39); POTASSIUM SERUM 3.6 MEQ/L (3.5-5.1)
[2018-10-02] MEDS: ALPRAZolam 0.5 MG TAB PO SCH ×4 (05:18→23:10)
[2018-10-02] MEDS: LEVOTHYROXINE 50MCG TABLET (0.05MG) PO SCH (05:18)
[2018-10-02] MEDS: HumaLOG INSULIN (NovoLOG) PER UNIT SC SCH ×4 (08:33→20:05)
[2018-10-02] MEDS: ENOXAPARIN 40 MG/0.4 ML SYRINGE (J1650) SC SCH (08:39)
[2018-10-02] MEDS: amLODIPine 5 MG TAB PO SCH ×2 (08:40→20:00)
[2018-10-02] MEDS: NEBIVOLOL 5 MG TAB (BYSTOLIC) PO SCH (08:40)
[2018-10-02] MEDS: NITROGLYCERIN 0.2 MG/HR PATCH TD SCH (08:41)
[2018-10-02] MEDS: POTASSIUM CHLORIDE 10 MEQ SR TABLET PO SCH (11:47)
[2018-10-02] MEDS: NORCO, ANEXSIA 5/325MG TABLET (HYDROcodone/ACETAMINOPHEN) PO PRN (13:26)
--- NOTE | 2018-10-02 14:12 | REP ---
MRI BRAIN WITHOUT CONTRAST: Multiple sequences obtained in the axial and sagittal planes without the use of intravenous contrast. Comparison made with prior CT brain 09/30/2018. Moderate atrophy is again noted. There are patchy T2 and FLAIR signal hyperintensities in the periventricular white matter bilaterally compatible with small vessel ischemic changes. No acute infarct is seen. There is no midline shift. No abnormal signal is seen in the brain stem or cerebellum. There is mild cerebellar atrophy. The 7th and 8th cranial nerve complexes are unremarkable. There is a mass in the sella turcica. This measures about 1.4 x 1.3 x 1.6 cm in diameter. 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 Dedicated pituitary MRI would be needed to further evaluate. Globes are intact. IMPRESSION: Atrophy and chronic small vessel ischemic changes. No acute infarct. There is a solid-appearing mass in the sella turcica 1.4 x 1.3 x 1.6 cm in diameter. 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 Further evaluation may be made with dedicated MRI of the pituitary gland with and without contrast. Electronically Signed by Sean Mariscal MD 10/02/2018 11:59 P
--- NOTE | 2018-10-02 14:35 | IPN ---
DATE OF SERVICE: 10/02/2018 Lisbet is seen in intensive care unit (ICU). I spoke with her daughter, Constance, who is with her, as well. The patient was seen by neurology, Dr. Maharaj. We did try to do an MRI scan of the brain. The patient was claustrophobic and could not tolerate it. The family is concerned about her mental status. This patient has baseline dementia but does seem to have delirium on top of it. I do not know her baseline mental status, having not met her previously. I am struck that she actually follows conversations quite well. (I made a joke about the type of music she was listening to through her headphones to her daughter, and the patient picked up on it and commented and started to joke along with me, suggesting she is actually quite attuned to what is going on around her.) PHYSICAL EXAMINATION: 154/68, pulse of 90, 90% oxygen (O2) saturation on room air. General appearance: Resting comfortably, smiling, follows commands. Pupils equal, round, and reactive to light. No facial droop or weakness. Lungs clear. Heart: Regular rate and rhythm. 1/6 systolic ejection murmur. Abdomen: Soft, nontender. No masses. No peripheral edema. No clonus. This is resolved. No asterixis. Normal strength in the arms and legs. Follows full neurologic examination without difficulty. LABORATORIES: Complete blood count (CBC) unremarkable. Electrolytes unremarkable. Potassium 3.6. IMPRESSION: 1. Hypertensive emergency with hypertensive encephalopathy. Blood pressure is better. She is still cephalopathic. Blood pressure is down to acceptable range. She has a long history of documented noncompliance with medical therapy. Clonidine is probably not her best choice. 2. Transient left hemiparesis, probably from hypoperfusion/ cerebral vasospasm. Could not do the MRI scan. Neurology's input is appreciated. 3. Torsades de pointes. This has not recurred after the magnesium runs. I will try to keep her potassium in the upper normal range. Supplemental potassium has been ordered. Nortriptyline has been discontinued. 4. Aortic sclerosis/aortic regurgitation on echocardiogram. enough to warrant further attention at this time. 5. Abnormal troponin. She needs an outpatient nuclear stress test. 6. Dementia. When it comes time for her to go home, we need to be sure she has sufficient home support. She has two daughters. In my discussions with them, one does not feel that the other daughter is watching their mother closely enough. Once transferred out of the unit and start thinking about going home, this will need to be addressed. 7. Type 2 diabetes. She uses glipizide as an outpatient. Her current hemoglobin A1c was 6.5%. She might be better served by a medication less likely to cause hypoglycemia, particularly with her documented problems with intermittent compliance with her medications.
[2018-10-02] MEDS ORDERED: NEBIVOLOL 5 MG TAB (BYSTOLIC) PO ONE (15:00)
[2018-10-02] MEDS: ATORVASTATIN 20 MG TAB PO SCH (20:00)
[2018-10-02] MEDS: **NOTE PATIENT COMMENT** MISC XX SCH (20:07)
[2018-10-03] VITALS: BP 146/64
[2018-10-03 04:00] VITALS: BP 143/75
[2018-10-03 04:44] LABS: HEMATOCRIT 43.3 % (36.0-47.0); HEMOGLOBIN 14.1 g/dl (12.0-15.5); MEAN CORPUSCULAR HEMOGLOBIN 30.9 pg (27.0-33.0); MEAN CORPUSCULAR HGB CONC 32.6 g/dl (32.0-36.5); PLATELET COUNT, AUTOMATED 282 10^3/uL (150-450); RED BLOOD COUNT 4.56 10^6/uL (4.00-5.40); WHITE BLOOD COUNT 9.6 10^3/uL (4.0-10.0)
[2018-10-03 04:49] LABS: CALCIUM LEVEL 9.3 MG/DL (8.8-10.2); CREATININE FOR GFR 1.02 MG/DL (0.55-1.30); GLOMERULAR FILTRATION RATE 55.8 (>39); POTASSIUM SERUM 4.1 MEQ/L (3.5-5.1)
[2018-10-03] MEDS: ALPRAZolam 0.5 MG TAB PO SCH ×4 (05:05→23:34)
[2018-10-03] MEDS: LEVOTHYROXINE 50MCG TABLET (0.05MG) PO SCH (05:06)
--- NOTE | 2018-10-03 07:43 | IPNPDOC ---
Subjective Date Seen The patient was seen on 10/03/18. Subjective Chief Complaint/HPI Hypertensive urgency Events since last encounter No abnormal telemetry or acute events overnight. Per sitter at bedside, she has remained calm. Has been downgraded to PCU status General: Reports: ROS Unobtainable (patient sleeping and answers yes to all questions, despite appearing comfortable) Objective Physical Examination General Exam: Positive: No Acute Distress, Other (sleeping) Neck Exam: Positive: Supple; Negative: JVD, thyromegaly Chest Exam: Positive: Clear to auscultation, Normal air movement Heart Exam: Positive: Rate Normal, Regular Rhythm, Normal S1, Normal S2; Negative: Murmurs, Rubs Abdomen Exam: Positive: Normal bowel sounds, Soft; Negative: Tenderness, Hepatospenomegaly Extremity Exam: Positive: Normal pulses; Negative: Clubbing, Cyanosis, Edema Psych Exam: Negative: Memory Intact Assessment /Plan Problems (1) Hypertensive urgency Status: Acute Response to Treatment: Improving Problem Specific Plan: Consult Specialist Problem Text: cardiology following. Currently stable. Continue current medications. Hypertensive emergency with hypertensive encephalopathy. She remains still encephalopathic. Blood pressure is down to acceptable range. case with PFS today regarding care at home NO clonidine at dc (2) Dementia Status: Chronic Problem Text: .When it comes time for her to go home, we need to be sure she has sufficient home support. She has two daughters. In prior discussions with them, one does not feel that the other daughter is watching their mother closely enough. (3) Diabetes Status: Chronic Problem Text: Consider alternate medication for home regimen given non- compliance and risk of hypoglycemia. Last Hgba1c 6.5 She uses glipizide as an outpatient. (4) Torsades de pointes Status: Resolved Problem Text: This has not recurred after the magnesium runs. Supplemental potassium has been ordered. Nortriptyline has been discontinued. Mag level to be checked today. (5) Pituitary mass Status: Chronic Problem Text: ho transsphenoidal hypophysectomy 10/02/18 MRI brain: There is a solid-appearing mass in the sella turcica 1.4 x 1.3 x 1.6 cm in diameter. 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 (6) Physical deconditioning Problem Text: 10/03 safe for dc home-daughter Gi (at bedside) plans to administer patient's meds qAM Plan/VTE VTE Prophylaxis Ordered?: Yes VS, I&O, 24H, Fishbone Vital Signs/I&O Vital Signs Date Time Temp Pulse Resp B/P (MAP) Pulse Ox O2 Delivery O2 Flow Rate FiO2 10/03/18 04:00 97.5 85 18 143/75 (97) 93 09/30/18 06:30 1.0 09/29/18 20:19 Room Air I&O- Last 24 Hours up to 6 AM 10/03/18 06:00 Intake Total 1140 ml Output Total 1175 ml Balance -35 ml Laboratory Data 24H LABS Laboratory Tests 2 10/02/18 11:53: Bedside Glucose (Misc Panel) 101 10/02/18 17:45: Bedside Glucose (Misc Panel) 152H 10/02/18 20:04: Bedside Glucose (Misc Panel) 115H 10/03/18 03:57: Nucleated Red Blood Cells % (auto) 0.0, Anion Gap 7L, Glomerular Filtration Rate 55.8, Blood Urea Nitrogen 18, Creatinine 1.02, Sodium Level 141, Potassium Level 4.1, Chloride Level 105, Carbon Dioxide Level 29, Calcium Level 9.3 CBC/BMP Laboratory Tests 10/03/18 03:57 Red Blood Count 4.56, Mean Corpuscular Volume 95.0, Mean Corpuscular Hemoglobin 30.9, Mean Corpuscular Hemoglobin Concent 32.6, Red Cell Distribution Width 14.3, Calcium Level 9.3 Margarita Awad Oct 03, 2018 07:43 Pancho Koch M.D. Oct 03, 2018 15:54
[2018-10-03 07:46] LABS: MAGNESIUM LEVEL 2.3 MG/DL (1.8-2.4)
[2018-10-03 08:00] VITALS: BP 146/67
[2018-10-03] MEDS: HumaLOG INSULIN (NovoLOG) PER UNIT SC SCH ×4 (09:20→20:38)
[2018-10-03] MEDS: ENOXAPARIN 40 MG/0.4 ML SYRINGE (J1650) SC SCH (09:20)
[2018-10-03] MEDS: NITROGLYCERIN 0.2 MG/HR PATCH TD SCH (09:25)
[2018-10-03] MEDS: POTASSIUM CHLORIDE 10 MEQ SR TABLET PO SCH (09:26)
[2018-10-03] MEDS: NEBIVOLOL 5 MG TAB (BYSTOLIC) PO SCH (09:27)
[2018-10-03] MEDS: amLODIPine 5 MG TAB PO SCH (09:27)
[2018-10-03 12:00] VITALS: BP 134/68
[2018-10-03 16:00] VITALS: BP 137/63
[2018-10-03 20:00] VITALS: BP 136/66
[2018-10-03] MEDS: ATORVASTATIN 20 MG TAB PO SCH (20:43)
[2018-10-03] MEDS: **NOTE PATIENT COMMENT** MISC XX SCH (20:43)
[2018-10-04] VITALS (7 sets, daily range): BP systolic 110–172; BP diastolic 64–79
[2018-10-04 04:11] LABS: HEMATOCRIT 44.1 % (36.0-47.0); HEMOGLOBIN 14.7 g/dl (12.0-15.5); MEAN CORPUSCULAR HEMOGLOBIN 31.8 pg (27.0-33.0); MEAN CORPUSCULAR HGB CONC 33.3 g/dl (32.0-36.5); MEAN CORPUSCULAR VOLUME 95.5 fl (80.0-96.0); PLATELET COUNT, AUTOMATED 293 10^3/uL (150-450); RED BLOOD COUNT 4.62 10^6/uL (4.00-5.40); WHITE BLOOD COUNT 9.3 10^3/uL (4.0-10.0)
[2018-10-04 04:35] LABS: BLOOD UREA NITROGEN 14 MG/DL (7-18); CALCIUM LEVEL 9.6 MG/DL (8.8-10.2); CARBON DIOXIDE LEVEL 30 MEQ/L (21-32); CHLORIDE LEVEL 104 MEQ/L (98-107); CREATININE FOR GFR 0.94 MG/DL (0.55-1.30); GLOMERULAR FILTRATION RATE > 60.0 (>39); GLUCOSE, FASTING 128 MG/DL (70-100); POTASSIUM SERUM 4.1 MEQ/L (3.5-5.1); SODIUM LEVEL 140 MEQ/L (136-145)
[2018-10-04] MEDS: ALPRAZolam 0.5 MG TAB PO SCH (05:56)
[2018-10-04] MEDS: LEVOTHYROXINE 50MCG TABLET (0.05MG) PO SCH (05:58)
[2018-10-04] MEDS: HumaLOG INSULIN (NovoLOG) PER UNIT SC SCH ×4 (07:30→20:58)
--- NOTE | 2018-10-04 07:55 | IPNPDOC ---
Subjective Date Seen The patient was seen on 10/04/18. Subjective Chief Complaint/HPI hypertensive urgency Events since last encounter Alprazolam given q 6 hours, increased lethargy and difficulty waking. BP elev ated overnight 170s. asymptomatic and sleeping during elevated BP. amlodipine changed to 10 mg daily from 5 mg po bid by cardiology, Dr. Dela Cruz. Constitutional: Denies: Chills, Fever, Night Sweats Pulmonary: Denies: Dyspnea, Cough Cardiovascular: Denies: Chest Pain, Palpitations, Orthopnea, Paroxysmal Noc. Dyspnea, Lt Headedness Gastrointestinal: Denies: Nausea, Vomiting, Abdominal Pain, Diarrhea, Constipation Genitourinary: Denies: Dysuria, Frequency, Incontinence, Retention Psych: Reports: Mood Normal; Denies: Depression, Memory Issues Objective Physical Examination General Exam: Positive: No Acute Distress, Other (sleeping) Neck Exam: Positive: Supple; Negative: JVD, thyromegaly Chest Exam: Positive: Clear to auscultation, Normal air movement Heart Exam: Positive: Rate Normal, Regular Rhythm, Normal S1, Normal S2; Negative: Murmurs, Rubs Abdomen Exam: Positive: Normal bowel sounds, Soft; Negative: Tenderness, Hepatospenomegaly Extremity Exam: Positive: Normal pulses; Negative: Clubbing, Cyanosis, Edema Psych Exam: Negative: Memory Intact Assessment /Plan Problems (1) Hypertensive urgency Status: Acute Response to Treatment: Improving Problem Specific Plan: Consult Specialist Problem Text: plan dc on amlo 10, nebiv 10-both qAM so daughter can observe compliance Hypertensive emergency with hypertensive encephalopathy. case with PFS today regarding care at home NO clonidine at dc (2) Dementia Status: Chronic Problem Text: 10/04/18: spoke with HCP: Constance Carol: [phone]. She is planning on medication management in the home. reveiwed safety concerns regarding mentation. Constance is agreeable to home care and working toward care in the home. Plans on check in and medication admin in am and a family member to check on her every evening. Family will help manage meals. Patient with significant lethargy with scheduled Xanax. Does not take it s cheduled at home. Uses 120 q 2-3 months per prescription hx. May want to decrease dosing. has been on this medication for over 30 years per family. l .When it comes time for her to go home, we need to be sure she has sufficient home support. She has two daughters. In prior discussions with them, one does not feel that the other daughter is watching their mother closely enough. (3) Diabetes Status: Chronic Problem Text: changed glipizide 10 QD to kim 50 (given non-compliance). (4) Pituitary mass Status: Chronic Problem Text: ho transsphenoidal hypophysectomy 10/02/18 MRI brain: There is a solid-appearing mass in the sella turcica 1.4 x 1.3 x 1.6 cm in diameter. 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 Mag level to be checked today. Plan/VTE VTE Prophylaxis Ordered?: Yes VS, I&O, 24H, Fishbone Vital Signs/I&O Vital Signs Date Time Temp Pulse Resp B/P (MAP) Pulse Ox O2 Delivery O2 Flow Rate FiO2 10/04/18 05:50 82 172/79 (110) 10/04/18 04:10 98.8 19 99 09/30/18 06:30 1.0 09/29/18 20:19 Room Air I&O- Last 24 Hours up to 6 AM 10/04/18 06:00 Intake Total 1410 ml Output Total 1800 ml Balance -390 ml Laboratory Data 24H LABS Laboratory Tests 2 10/03/18 11:28: Bedside Glucose (Misc Panel) 161H 10/03/18 16:39: Bedside Glucose (Misc Panel) 137H 10/03/18 20:31: Bedside Glucose (Misc Panel) 144H 10/04/18 03:48: Nucleated Red Blood Cells % (auto) 0.0, Anion Gap 6L, Glomerular Filtration Rate > 60.0, Blood Urea Nitrogen 14, Creatinine 0.94, Sodium Level 140, Potassium Level 4.1, Chloride Level 104, Carbon Dioxide Level 30, Calcium Level 9.6 CBC/BMP Laboratory Tests 10/04/18 03:48 Red Blood Count 4.62, Mean Corpuscular Volume 95.5, Mean Corpuscular Hemoglobin 31.8, Mean Corpuscular Hemoglobin Concent 33.3, Red Cell Distribution Width 14.3, Calcium Level 9.6 Margarita AwadP Oct 04, 2018 07:55 Pancho Koch M.D. Oct 04, 2018 16:53
[2018-10-04] MEDS ORDERED: ALPRAZolam 0.5 MG TAB PO PRN (08:00)
[2018-10-04] MEDS: POTASSIUM CHLORIDE 10 MEQ SR TABLET PO SCH (08:02)
[2018-10-04] MEDS: ENOXAPARIN 40 MG/0.4 ML SYRINGE (J1650) SC SCH (08:02)
[2018-10-04] MEDS: amLODIPine 10 MG TAB PO SCH (08:02)
[2018-10-04] MEDS: NEBIVOLOL 5 MG TAB (BYSTOLIC) PO SCH (08:03)
[2018-10-04] MEDS: NITROGLYCERIN 0.2 MG/HR PATCH TD SCH (08:04)
[2018-10-04] MEDS ORDERED: NEBIVOLOL 5 MG TAB (BYSTOLIC) PO ONE (10:00)
[2018-10-04] MEDS: NORCO, ANEXSIA 5/325MG TABLET (HYDROcodone/ACETAMINOPHEN) PO PRN (12:10)
[2018-10-04] MEDS: SITagliptin 50 MG TAB (JANUVIA) PO SCH (17:01)
[2018-10-04] MEDS: ATORVASTATIN 20 MG TAB PO SCH (20:59)
[2018-10-04] MEDS: **NOTE PATIENT COMMENT** MISC XX SCH (21:00)
[2018-10-04] MEDS ORDERED: MAALOX 30 ML SUSP *UDC PO PRN (22:45)
[2018-10-05 04:00] VITALS: BP 161/99
[2018-10-05 05:17] LABS: HEMATOCRIT 47.7 % (36.0-47.0); HEMOGLOBIN 15.6 g/dl (12.0-15.5); MEAN CORPUSCULAR HEMOGLOBIN 30.9 pg (27.0-33.0); MEAN CORPUSCULAR HGB CONC 32.7 g/dl (32.0-36.5); MEAN CORPUSCULAR VOLUME 94.5 fl (80.0-96.0); PLATELET COUNT, AUTOMATED 327 10^3/uL (150-450); RED BLOOD COUNT 5.05 10^6/uL (4.00-5.40); WHITE BLOOD COUNT 10.9 10^3/uL (4.0-10.0)
[2018-10-05 05:33] LABS: CREATININE FOR GFR 1.09 MG/DL (0.55-1.30); GLOMERULAR FILTRATION RATE 51.7 (>39); MAGNESIUM LEVEL 2.4 MG/DL (1.8-2.4); POTASSIUM SERUM 4.4 MEQ/L (3.5-5.1)
[2018-10-05] MEDS: LEVOTHYROXINE 50MCG TABLET (0.05MG) PO SCH (06:22)
[2018-10-05] MEDS ORDERED: BYST5TAB2 PO (07:21)
[2018-10-05] MEDS ORDERED: ALPR0.5T3 PO (07:21)
[2018-10-05] MEDS ORDERED: SITA50TAB PO (07:21)
[2018-10-05] MEDS ORDERED: ATOR1TAB21 PO (07:21)
[2018-10-05] MEDS ORDERED: AMLO10TA5 PO (07:21)
[2018-10-05] MEDS: HumaLOG INSULIN (NovoLOG) PER UNIT SC SCH (07:30)
[2018-10-05] MEDS ORDERED: NITR0.2D5 TD (07:58)
[2018-10-05] MEDS ORDERED: CALCIUM CARBONATE 500 MG CHEW U/D PO ONE (08:00)
[2018-10-05] MEDS: POTASSIUM CHLORIDE 10 MEQ SR TABLET PO SCH (08:08)
[2018-10-05] MEDS: SITagliptin 50 MG TAB (JANUVIA) PO SCH (08:08)
[2018-10-05 08:09] VITALS: BP 160/74
[2018-10-05] MEDS: amLODIPine 10 MG TAB PO SCH (08:09)
[2018-10-05] MEDS: NITROGLYCERIN 0.2 MG/HR PATCH TD SCH (08:10)
[2018-10-05] MEDS: ENOXAPARIN 40 MG/0.4 ML SYRINGE (J1650) SC SCH (08:17)
[2018-10-05] MEDS ORDERED: NEBIVOLOL 5 MG TAB (BYSTOLIC) PO SCH ×2 (09:00)
== END 2018-10-05 09:07 | disposition home or self-care (01) | DRG 78 ==
LOC: EDBD 18:57 → M ED 18:57 → M ED INP 09-30 00:40 → M ICU 09-30 03:41 → OBSVTOIN 09-30 12:10
PROVIDERS: ADMIT Internal Medicine; ATTEND Family Medicine
DX: I67.4 Hypertensive encephalopathy (principal); I16.1 Hypertensive emergency; G81.94 Hemiplegia, unspecified affecting left nondominant side; I47.2 Ventricular tachycardia; I45.81 Long QT syndrome; E66.9 Obesity, unspecified; Z79.899 Other long term (current) drug therapy; Z88.0 Allergy status to penicillin; Z91.041 Radiographic dye allergy status; Z88.8 Allergy status to other drugs, medicaments and biological substances; K21.9 Gastro-esophageal reflux disease without esophagitis; G43.909 Migraine, unspecified, not intractable, without status migrainosus; E03.9 Hypothyroidism, unspecified; I71.4 Abdominal aortic aneurysm, without rupture; N18.3 Chronic kidney disease, stage 3 (moderate); E11.21 Type 2 diabetes mellitus with diabetic nephropathy; F03.90 Unspecified dementia, unspecified severity, without behavioral disturbance, psychotic disturbance, mood disturbance, and anxiety; E78.5 Hyperlipidemia, unspecified; Z91.19 Patient's noncompliance with other medical treatment and regimen

== ENCOUNTER 2018-11-16 14:17 | Observation (INO) | payer MEDICARE ==
[~2018-11-16] VITALS: Ht 167.6 cm; Wt 70.9 kg
[~2018-11-16 14:17] MED LIST changes: -MAGN400T PO; -METF500T4 PO
[2018-11-16] MEDS ORDERED: METF-791 PO ×2 (14:26→15:58)
[2018-11-16 15:38] LABS: BASO # 0.1 10^3/uL (0.0-0.2); BASO % 0.5 % (0.0-1.0); EOS # 0.1 10^3/uL (0.0-0.5); EOS % 0.7 % (0.0-3.0); HEMATOCRIT 37.4 % (36.0-47.0); HEMOGLOBIN 12.8 g/dl (12.0-15.5); LYMPH # 3.1 10^3/uL (1.5-5.0); MEAN CORPUSCULAR HGB CONC 34.2 g/dl (32.0-36.5); MEAN CORPUSCULAR VOLUME 90.6 fl (80.0-96.0); MONO # 1.3 10^3/uL (0.0-0.8); MONO % 10.7 % (0.0-5.0); NEUTROPHILS # 7.5 10^3/uL (1.5-8.5); NEUTROPHILS % 61.9 % (36.0-66.0); PLATELET COUNT, AUTOMATED 290 10^3/uL (150-450); RED BLOOD COUNT 4.13 10^6/uL (4.00-5.40); WHITE BLOOD COUNT 12.1 10^3/uL (4.0-10.0)
[2018-11-16] MEDS ORDERED: SITA50TAB PO (15:58)
[2018-11-16] MEDS ORDERED: ALPR0.5T3 PO (15:58)
[2018-11-16] MEDS ORDERED: ATOR1TAB21 PO (15:58)
[2018-11-16] MEDS ORDERED: BYST5TAB2 PO (15:58)
[2018-11-16] MEDS ORDERED: AMLO10TA5 PO (15:58)
[2018-11-16 16:07] LABS: CALCIUM LEVEL 7.7 MG/DL (8.8-10.2); CREATININE FOR GFR 1.05 MG/DL (0.55-1.30); MAGNESIUM LEVEL 0.9 MG/DL (1.8-2.4); PHOSPHORUS LEVEL 3.2 MG/DL (2.5-4.9); POTASSIUM SERUM 3.2 MEQ/L (3.5-5.1)
[2018-11-16] MEDS ORDERED: MAG SULF 1GM/100ML (MAG RUN) 1 GM in APPROPRIATE DILUENT 1 EA IV ONE (17:00)
[2018-11-16] MEDS ORDERED: POTASSIUM CHLORIDE 10 MEQ SR TABLET PO ONE (17:15)
[2018-11-16] MEDS ORDERED: ALPRAZolam 0.5 MG TAB PO PRN (17:30)
[2018-11-16] MEDS ORDERED: NORCO, ANEXSIA 5/325MG TABLET (HYDROcodone/ACETAMINOPHEN) PO PRN (17:30)
[2018-11-16] MEDS ORDERED: GLUCAGON FOR INJ 1 MG VIAL (J1610) SC PRN (17:45)
[2018-11-16] MEDS ORDERED: DEXTROSE 50% 50 ML SYRINGE IV PRN (17:45)
[2018-11-16] MEDS ORDERED: GLUCOSE 4 GM CHEW TABLET PO PRN (17:45)
--- NOTE | 2018-11-16 18:03 | HPEPDOC ---
General Date of Admission Date of Service: Nov 16, 2018 Chief Complaint The patient is a 78-year-old female admitted with a reason for visit of Abnormal Labs. History of Present Illness 78f hx of dm, hypothyroid, gerd, dementia, htn, recent admission with polymorphic vtach. Pt was seen for follow up after being discharged about 2 weeks ago. She was found to be severely hypomagnesemic and sent to the ED. Pt reports watery stools about one per day for the past few days. She also notes a generalized abdominal pain for the past two weeks. Otherwise she has felt well. Her daughter reports she has been eating and drinking well. This morning she had a period of trembling which they feel was provoked by a thunderstorm making her anxious. a full ROS was performed and negative except as above. Home Medications Scheduled Amlodipine Besylate (Amlodipine Besylate) 10 Mg Tablet, 10 MG PO DAILY, (Reported) Atorvastatin Calcium (Atorvastatin Calcium) 20 Mg Tablet, 20 MG PO DAILY, (Reported) Levothyroxine Sodium (Synthroid) 50 Mcg Tab, 50 MCG PO DAILY, (Reported) Metformin HCl (Metformin HCl ER) 500 Mg Tab.er.24h, 500 MG PO QPM, (Reported) TAKES AT DINNERTIME Nebivolol HCl (Bystolic) 5 Mg Tablet, 10 MG PO DAILY, (Reported) Omeprazole (Omeprazole) 40 Mg Capsule.dr, 40 MG PO DAILY, (Reported) Sitagliptin (Januvia) 50 Mg Tablet, 50 MG PO DAILY, (Reported) Scheduled PRN Alprazolam (Alprazolam) 0.5 Mg Tablet, 0.5 MG PO Q6H PRN for ANXIETY, (Reported) Hydrocodone/Acetaminophen ([place] 5-325 Tablet) 1 Tab Tab, 1 TAB PO TID PRN for PAIN, (Reported) Allergies Coded Allergies: Contrast Media (Verified Allergy, Unknown, 08/01/15) Penicillins (Verified Allergy, Unknown, 09/29/18) Sulfa (Sulfonamide Antibiotics) (Verified Allergy, Unknown, 09/29/18) acetaminophen (Verified Allergy, Unknown, 09/29/18) amlodipine (Verified Allergy, Unknown, 09/29/18) butorphanol (Verified Allergy, Unknown, 09/29/18) dexlansoprazole (Verified Allergy, Unknown, 09/29/18) diphenhydramine (Verified Allergy, Unknown, 09/29/18) erythromycin base (Verified Allergy, Unknown, 09/29/18) ezetimibe (Verified Allergy, Unknown, 09/29/18) gemfibrozil (Verified Allergy, Unknown, 09/29/18) hydrochlorothiazide (Verified Allergy, Unknown, 09/29/18) iodine (Verified Allergy, Unknown, 09/29/18) lisinopril (Verified Allergy, Unknown, 09/29/18) losartan (Verified Allergy, Unknown, 09/29/18) moxifloxacin (Verified Allergy, Unknown, 09/29/18) potassium (Verified Allergy, Unknown, 09/29/18) pregabalin (Verified Allergy, Unknown, 09/29/18) procaine (Verified Allergy, Unknown, 09/29/18) propoxyphene (Verified Allergy, Unknown, 09/29/18) sucralfate (Verified Allergy, Unknown, 09/29/18) sumatriptan (Verified Allergy, Unknown, 09/29/18) topiramate (Verified Allergy, Unknown, 09/29/18) ketorolac (Verified Adverse Reaction, Mild, HYPER, 09/30/18) Family History Significant Family History: No pertinent family hx Social History * Smoker: non-smoker Alcohol: Denies Drugs: denies A-FIB/CHADSVASC A-FIB History Current/History of A-Fib/PAF?: No Current PO Anticoag Therapy: No Age/Risk Factor Scoring CHADSVASC: CHADSVASC Response (Comments) Value Age Risk Factor Age >/= 75 years old 2 Gender Risk Factor Female 1 Hx of CHF No 0 Hx of HTN Yes 1 Hx of Stroke/TIA/or VTE No 0 Hx of Diabetes Yes 1 Hx of Vascular Disease No 0 Total 5 Treatment Treatment ordered: NONE Reason Anticoagulant not given: Not indicated/[id number] Physical Examination General Exam: Positive: Alert, Cooperative, No Acute Distress Eye Exam: Positive: PERRLA, Conjunctiva & lids normal, EOMI; Negative: Sclera icteric ENT Exam: Positive: Atraumatic, Mucous membr. moist/pink, Pharynx Normal Neck Exam: Positive: Supple; Negative: JVD, thyromegaly Chest Exam: Positive: Clear to auscultation, Normal air movement Heart Exam: Positive: Rate Normal, Regular Rhythm, Normal S1, Normal S2; Negative: Murmurs, Rubs Abdomen Exam: Positive: Normal bowel sounds, Soft; Negative: Tenderness, Hepatospenomegaly Extremity Exam: Positive: Edema, Normal pulses; Negative: Clubbing, Cyanosis Skin Exam: Positive: Nl turgor and temperature; Negative: Breakdown, Lesion Neuro Exam: Positive: Normal Gait, Normal Speech, Cranial Nerves 3-12 NL, Reflexes 2+ Psych Exam: Positive: Mental status NL, Mood NL, Oriented x 3 Vital Signs Vital Signs Date Time Temp Pulse Resp B/P (MAP) Pulse Ox O2 Delivery O2 Flow Rate FiO2 11/16/18 16:17 11/16/18 16:15 78 18 94 Room Air 11/16/18 14:18 98.5 Laboratory Data Labs 24H Laboratory Tests 2 11/16/18 15:22: Immature Granulocyte % (Auto) 0.2, White Blood Count 12.1H, Red Blood Count 4.13, Hemoglobin 12.8, Hematocrit 37.4, Mean Corpuscular Volume 90.6, Mean Corpuscular Hemoglobin 31.0, Mean Corpuscular Hemoglobin Concent 34.2, Red Cell Distribution Width 13.6, Platelet Count 290, Neutrophils (%) (Auto) 61.9, Lymphocytes (%) (Auto) 26.0, Monocytes (%) (Auto) 10.7H, Eosinophils (%) (Auto) 0.7, Basophils (%) (Auto) 0.5, Neutrophils # (Auto) 7.5, Lymphocytes # (Auto) 3.1, Monocytes # (Auto) 1.3H, Eosinophils # (Auto) 0.1, Basophils # (Auto) 0.1, Nucleated Red Blood Cells % (auto) 0.0, Anion Gap 9, Glomerular Filtration Rate 54.0, Blood Urea Nitrogen 11, Creatinine 1.05, Sodium Level 141, Potassium Level 3.2L, Chloride Level 105, Carbon Dioxide Level 27, Calcium Level 7.7L, Phosphorus Level 3.2, Magnesium Level 0.9*L CBC/BMP Laboratory Tests 11/16/18 15:22 Red Blood Count 4.13, Mean Corpuscular Volume 90.6, Mean Corpuscular Hemoglobin 31.0, Mean Corpuscular Hemoglobin Concent 34.2, Red Cell Distribution Width 13.6, Neutrophils (%) (Auto) 61.9, Lymphocytes (%) (Auto) 26.0, Monocytes (%) (Auto) 10.7 H, Eosinophils (%) (Auto) 0.7, Basophils (%) (Auto) 0.5, Neutrophils # (Auto) 7.5, Lymphocytes # (Auto) 3.1, Monocytes # (Auto) 1.3 H, Eosinophils # (Auto) 0.1, Basophils # (Auto) 0.1, Calcium Level 7.7 L Assessment/Plan 78f with recent hx of polymorphic vtach p/w hypomagnesemia hypomag likely due to diarrhea will give a total of 4g of mag sulfate recheck in am cardiac monitoring diarrhea loose stools occurring daily given leukocytosis and abd pain will check gi panel dm hold oral dm meds monitor sugars sliding scale coverage diabetic diet Plan / VTE VTE Prophylaxis Ordered?: Yes DAWIT BANKS MD Nov 16, 2018 18:03
[2018-11-16 19:55] VITALS: BP 142/65
[2018-11-16] MEDS: MAG SULF 1GM/100ML (MAG RUN) 1 GM in APPROPRIATE DILUENT 1 EA IV SCH ×3 (20:28→22:39)
--- NOTE | 2018-11-16 20:39 | ECGEPIP ---
[facility] - ED Test Date: 2018-11-16 Pat Name: JONA MOORE Department: Room: - Gender: Female Youth Probation Officer: MARISABEL : 1940 Requested By: JUAN LAMBERT Order Number: [id number] Reading MD: Adelaida Ahn Measurements Intervals Baker Rate: 84 P: 31 TN: 166 QRS: -62 QRSD: 129 T: 16 QT: 413 QTc: 488 Interpretive Statements SINUS RHYTHM RIGHT BUNDLE BRANCH BLOCK LEFT ANTERIOR FASCICULAR BLOCK LESS PRONOUNCED ST CHANGES COMPARED 09/30/18 Electronically Signed on 11-16-2018 20:39:19 EDT by Adelaida Ahn
[2018-11-16] MEDS ORDERED: ENOXAPARIN 40 MG/0.4 ML SYRINGE (J1650) SC SCH (21:00)
[2018-11-17 06:00] VITALS: BP 135/65
[2018-11-17] MEDS ORDERED: LEVOTHYROXINE 50MCG TABLET (0.05MG) PO SCH (06:00)
[2018-11-17 06:19] LABS: BASO # 0.1 10^3/uL (0.0-0.2); BASO % 0.6 % (0.0-1.0); EOS # 0.1 10^3/uL (0.0-0.5); HEMATOCRIT 37.4 % (36.0-47.0); HEMOGLOBIN 12.5 g/dl (12.0-15.5); LYMPH # 2.1 10^3/uL (1.5-5.0); LYMPH % 22.6 % (24.0-44.0); MEAN CORPUSCULAR HEMOGLOBIN 30.4 pg (27.0-33.0); MEAN CORPUSCULAR HGB CONC 33.4 g/dl (32.0-36.5); MONO % 10.3 % (0.0-5.0); NEUTROPHILS # 6.1 10^3/uL (1.5-8.5); NEUTROPHILS % 65.2 % (36.0-66.0); PLATELET COUNT, AUTOMATED 279 10^3/uL (150-450); RED BLOOD COUNT 4.11 10^6/uL (4.00-5.40); WHITE BLOOD COUNT 9.3 10^3/uL (4.0-10.0)
[2018-11-17 06:41] LABS: BLOOD UREA NITROGEN 7 MG/DL (7-18); CALCIUM LEVEL 7.5 MG/DL (8.8-10.2); CARBON DIOXIDE LEVEL 30 MEQ/L (21-32); CHLORIDE LEVEL 105 MEQ/L (98-107); CREATININE FOR GFR 0.85 MG/DL (0.55-1.30); GLOMERULAR FILTRATION RATE > 60.0 (>39); GLUCOSE, FASTING 109 MG/DL (70-100); MAGNESIUM LEVEL 2.2 MG/DL (1.8-2.4); POTASSIUM SERUM 3.5 MEQ/L (3.5-5.1); SODIUM LEVEL 140 MEQ/L (136-145)
[2018-11-17] MEDS ORDERED: HumaLOG INSULIN (NovoLOG) PER UNIT SC SCH (07:30)
[2018-11-17] MEDS ORDERED: PANTOPRAZOLE 40MG TAB (PROTONIX) PO SCH (09:00)
[2018-11-17] MEDS ORDERED: NEBIVOLOL 5 MG TAB (BYSTOLIC) PO SCH (09:00)
[2018-11-17] MEDS ORDERED: ATORVASTATIN 20 MG TAB PO SCH (09:00)
[2018-11-17] MEDS ORDERED: amLODIPine 10 MG TAB PO SCH (09:00)
[2018-11-17 09:07] VITALS: BP 132/68
[2018-11-17] MEDS ORDERED: MAGN400T PO (10:31)
--- NOTE | 2018-11-17 15:35 | DSES ---
DATE OF ADMISSION: 11/16/2018 DATE OF DISCHARGE: 11/17/2018 ATTENDING PHYSICIAN: Dr. Pancho Koch PCP: Milagro Walker NP This is a 78-year-old female who was admitted overnight due to severe hypomagnesemia with a level of 0.8. This was felt secondary to severe diarrhea prior to her presentation. Patient states that she has no further diarrhea. Denies nausea and vomiting. Has been tolerating by mouth well. She received 4 grams of magnesium supplementation. Her most recent magnesium level this morning is 2.2. Patient denies chest pain, headache, blurry vision, dizziness, shortness of breath. Vital signs have remained stable. She is afebrile. HEENT: Neck is supple without lymphadenopathy or jugular venous distention (JVD). Cardiovascular: Heart rate and rhythm are regular. Pulmonary: Lungs are clear. Abdomen: Soft and nontender. ASSESSMENT: 1. Hypomagnesemia secondary to diarrhea. 2. History of hypertension. 3. History of hypothyroidism. 4. History of diabetes. PLAN: Patient will be discharged to home. We will send her home on some magnesium supplementation as well. She is to followup with her primary care physician (PCP) within the next 5 days. Patient verbalized understanding and agreement with plan. MEDICATIONS ARE FOLLOWS: - magnesium oxide 400 mg one by mouth daily - alprazolam 0.5 mg by mouth 6 hours as needed for anxiety - amlodipine 10 mg daily - atorvastatin 20 mg by mouth daily - hydrocodone with acetaminophen one by mouth three times a day as needed pain - levothyroxine sodium 50 mcg one by mouth daily - metformin ER 500 mg by mouth every evening - Bystolic 5 mg tablets two by mouth daily - omeprazole 40 mg daily - Januvia 50 mg by mouth daily Patient is discharged in stable and satisfactory condition with no further questions at the time of discharge.
== END 2018-11-17 11:27 | disposition home or self-care (01) ==
LOC: M ED 14:17 → M ED INP 14:18 → M MSPAV 20:04
PROVIDERS: ADMIT Hospitalist; ATTEND Family Medicine
DX: E83.42 Hypomagnesemia (principal); R19.7 Diarrhea, unspecified; I10 Essential (primary) hypertension; E03.9 Hypothyroidism, unspecified; E11.9 Type 2 diabetes mellitus without complications; K21.9 Gastro-esophageal reflux disease without esophagitis; Z79.899 Other long term (current) drug therapy; Z79.84 Long term (current) use of oral hypoglycemic drugs; F32.9 Major depressive disorder, single episode, unspecified; F03.90 Unspecified dementia, unspecified severity, without behavioral disturbance, psychotic disturbance, mood disturbance, and anxiety; Z88.2 Allergy status to sulfonamides; Z88.8 Allergy status to other drugs, medicaments and biological substances
CPT/HCPCS: 36415; 80048; 83735; 84100; 85025; 93005; 93041; 94760; 96361; 96372; 96374; 99285; G0378; J1650; J3475

== ENCOUNTER → 2018-11-16 | Outpatient (REF) | payer MEDICARE ==
[~2018-11-16] MED LIST changes: +ALPR0.5T3 PO; +AMLO10TA5 PO; +ATOR1TAB21 PO; +BYST5TAB2 PO; +CLON-412 PO; +MAGN400T PO; +METF500T4 PO; +NITR0.2D5 TD; +NORT10CA2 PO; +OMEP-221 PO; +SITA50TAB PO
[2018-11-16 13:15] LABS: HEMOGLOBIN A1c 6.5 %
[2018-11-16 13:28] LABS: CREATININE, URINE 93.8 MG/DL; MALB URINE SIEMENS 47.3 MG/L; MAU/CREAT RATIO 50.4 MCG/MG (0.0-30.0)
[2018-11-16 13:36] LABS: ALBUMIN 3.6 GM/DL (3.2-5.2); BILIRUBIN,TOTAL 0.6 MG/DL (0.2-1.0); CALCIUM LEVEL 7.7 MG/DL (8.8-10.2); CHOLESTEROL RISK RATIO 3.628 (<5); CREATININE FOR GFR 0.97 MG/DL (0.55-1.30); FREE T4 1.18 NG/DL (0.76-1.46); GLOMERULAR FILTRATION RATE 59.1 (>39); MAGNESIUM LEVEL 0.8 MG/DL (1.8-2.4); POTASSIUM SERUM 3.2 MEQ/L (3.5-5.1); THYROID STIMULATING HORMONE 3.4 uIU/ML (0.358-3.740); TOTAL PROTEIN 7.5 GM/DL (6.4-8.2)
== END ==
LOC: M SFHCPLAZ 10:46
PROVIDERS: ATTEND Nurse Practitioner Family
DX: I10 Essential (primary) hypertension (principal); E03.9 Hypothyroidism, unspecified; E11.9 Type 2 diabetes mellitus without complications; E78.5 Hyperlipidemia, unspecified; E55.9 Vitamin D deficiency, unspecified; E53.8 Deficiency of other specified B group vitamins

== ENCOUNTER → 2018-11-21 | Outpatient (REF) | payer MEDICARE ==
[~2018-11-21] MED LIST changes: +MAGN400T PO; +METF-791 PO
[2018-11-21 19:56] LABS: ALBUMIN 3.9 GM/DL (3.2-5.2); CALCIUM LEVEL 9.9 MG/DL (8.8-10.2); CREATININE FOR GFR 1.08 MG/DL (0.55-1.30); GLOMERULAR FILTRATION RATE 52.2 (>39); MAGNESIUM LEVEL 2.1 MG/DL (1.8-2.4); PHOSPHORUS LEVEL 3.7 MG/DL (2.5-4.9); POTASSIUM SERUM 4.3 MEQ/L (3.5-5.1)
== END ==
LOC: M SFHCADAM 12:57
PROVIDERS: ATTEND Nurse Practitioner Family
DX: E83.42 Hypomagnesemia (principal)

== ENCOUNTER → 2018-12-02 | Outpatient (REF) | payer MEDICARE | LOC: M SFHCADAM 11:23 | PROVIDERS: ATTEND Nurse Practitioner Family | DX: E83.42 Hypomagnesemia (principal) ==

== ENCOUNTER → 2019-03-27 | Outpatient (REF) | payer MEDICARE ==
[~2019-03-27] MED LIST changes: -MAGN400T PO; +MAGN400T3 PO; -OMEP40CA2 PO; +OMEP40CA97 PO
[2019-03-27 19:09] LABS: BASO # 0.1 10^3/uL (0.0-0.2); BASO % 0.8 % (0.0-1.0); EOS # 0.3 10^3/uL (0.0-0.5); EOS % 3.3 % (0.0-3.0); HEMATOCRIT 43.4 % (36.0-47.0); HEMOGLOBIN 13.4 g/dl (12.0-15.5); LYMPH # 2.7 10^3/uL (1.5-5.0); MEAN CORPUSCULAR HEMOGLOBIN 28.6 pg (27.0-33.0); MEAN CORPUSCULAR HGB CONC 30.9 g/dl (32.0-36.5); MEAN CORPUSCULAR VOLUME 92.7 fl (80.0-96.0); MONO # 0.9 10^3/uL (0.0-0.8); MONO % 8.6 % (0.0-5.0); NEUTROPHILS # 6.4 10^3/uL (1.5-8.5); PLATELET COUNT, AUTOMATED 271 10^3/uL (150-450); RED BLOOD COUNT 4.68 10^6/uL (4.00-5.40); WHITE BLOOD COUNT 10.4 10^3/uL (4.0-10.0)
[2019-03-27 19:15] LABS: BILIRUBIN,TOTAL 0.3 MG/DL (0.2-1.0); CALCIUM LEVEL 9.5 MG/DL (8.8-10.2); CHOLESTEROL RISK RATIO 4.258 (<5); CREATININE FOR GFR 1.19 MG/DL (0.55-1.30); FOLATE 3.5 NG/ML (>5.4); FREE T4 1.02 NG/DL (0.76-1.46); GLOMERULAR FILTRATION RATE 46.7 (>39); MAGNESIUM LEVEL 2.1 MG/DL (1.8-2.4); POTASSIUM SERUM 4.1 MEQ/L (3.5-5.1); THYROID STIMULATING HORMONE 1.62 uIU/ML (0.358-3.740); TOTAL 25(OH) VITAMIN D 21.8 NG/ML (30.0-100.0); TOTAL PROTEIN 7.9 GM/DL (6.4-8.2)
[2019-03-27 19:27] LABS: HEMOGLOBIN A1c 6.4 %
[2019-03-27 19:37] LABS: MALB URINE SIEMENS 18.1 MG/L; MAU/CREAT RATIO 15.4 MCG/MG (0.0-30.0)
== END ==
LOC: M SFHCADAM 11:45
PROVIDERS: ATTEND Nurse Practitioner Family
DX: E11.9 Type 2 diabetes mellitus without complications (principal); E53.8 Deficiency of other specified B group vitamins; E03.9 Hypothyroidism, unspecified; E78.5 Hyperlipidemia, unspecified; E83.42 Hypomagnesemia; E55.9 Vitamin D deficiency, unspecified; Z79.899 Other long term (current) drug therapy

== ENCOUNTER → 2019-12-14 | Outpatient (REF) | payer MEDICARE ==
[~2019-12-14] MED LIST changes: -AMLO10TA5 PO; +AMLO1TAB25 PO; -METF-791 PO; +METF-838 PO
[2019-12-14 13:31] LABS: BASO # 0.1 10^3/uL (0.0-0.2); BASO % 0.5 % (0.0-1.0); EOS # 0.4 10^3/uL (0.0-0.5); EOS % 3.2 % (0.0-3.0); HEMATOCRIT 44.1 % (36.0-47.0); HEMOGLOBIN 14.2 g/dl (12.0-15.5); LYMPH # 2.8 10^3/uL (1.5-5.0); LYMPH % 24.4 % (24.0-44.0); MEAN CORPUSCULAR HEMOGLOBIN 29.3 pg (27.0-33.0); MEAN CORPUSCULAR HGB CONC 32.2 g/dl (32.0-36.5); MEAN CORPUSCULAR VOLUME 90.9 fl (80.0-96.0); MONO # 0.7 10^3/uL (0.0-0.8); MONO % 6.4 % (0.0-5.0); NEUTROPHILS # 7.3 10^3/uL (1.5-8.5); NEUTROPHILS % 65.1 % (36.0-66.0); PLATELET COUNT, AUTOMATED 296 10^3/uL (150-450); RED BLOOD COUNT 4.85 10^6/uL (4.00-5.40); WHITE BLOOD COUNT 11.3 10^3/uL (4.0-10.0)
[2019-12-14 13:49] LABS: HEMOGLOBIN A1c 6.6 %
[2019-12-14 14:10] LABS: ALBUMIN 4.1 GM/DL (3.2-5.2); ALT/SGPT 51 U/L (12-78); BILIRUBIN,TOTAL 0.7 MG/DL (0.2-1.0); BLOOD UREA NITROGEN 17 MG/DL (7-18); CALCIUM LEVEL 9.9 MG/DL (8.8-10.2); CARBON DIOXIDE LEVEL 29 MEQ/L (21-32); CHLORIDE LEVEL 106 MEQ/L (98-107); CHOLESTEROL LEVEL 151 MG/DL (<200); CHOLESTEROL RISK RATIO 4.314 (<5); CREATININE FOR GFR 1.24 MG/DL (0.55-1.30); FREE T4 1.01 NG/DL (0.76-1.46); GLOMERULAR FILTRATION RATE 44.4 (>39); GLUCOSE, FASTING 151 MG/DL (70-100); HDL CHOLESTEROL 35 MG/DL (>40); IRON (FE) 74 UG/DL (50-170); LDL CHOLESTEROL 62 MG/DL (<100); MAGNESIUM LEVEL 2.3 MG/DL (1.8-2.4); NON-HDL-C 116 MG/DL; NT-PRO BNP 545 PG/ML (<450); PERCENT SATURATION 21.3 % (13.2-45.0); POTASSIUM SERUM 4.3 MEQ/L (3.5-5.1); SODIUM LEVEL 140 MEQ/L (136-145); TOTAL IRON BINDING CAPACITY 347 UG/DL (250-450); TOTAL PROTEIN 8.4 GM/DL (6.4-8.2); TRIGLYCERIDES LEVEL 270 MG/DL (<150); URIC ACID 5.4 MG/DL (2.6-6.0)
[2019-12-14 14:11] LABS: FOLATE > 24.0 NG/ML (>5.4); PTH INTACT 50.3 PG/ML (18.5-88.0); TOTAL 25(OH) VITAMIN D 20.6 NG/ML (30.0-100.0)
== END ==
LOC: M PLALAB 12:58
PROVIDERS: ATTEND Nurse Practitioner Family
DX: E11.9 Type 2 diabetes mellitus without complications (principal); R51.9 Headache, unspecified; E03.9 Hypothyroidism, unspecified; E78.5 Hyperlipidemia, unspecified; F41.1 Generalized anxiety disorder; F32.9 Major depressive disorder, single episode, unspecified; E53.8 Deficiency of other specified B group vitamins; E55.9 Vitamin D deficiency, unspecified; I10 Essential (primary) hypertension; Z79.899 Other long term (current) drug therapy

== ENCOUNTER → 2020-06-25 | Outpatient (REF) | payer MEDICARE ==
[2020-06-25 15:18] LABS: BASO # 0.1 10^3/uL (0.0-0.2); BASO % 0.9 % (0.0-1.0); EOS # 0.5 10^3/uL (0.0-0.5); EOS % 4.6 % (0.0-3.0); HEMATOCRIT 44.3 % (36.0-47.0); HEMOGLOBIN 14.3 g/dl (12.0-15.5); LYMPH # 2.9 10^3/uL (1.5-5.0); LYMPH % 29.9 % (24.0-44.0); MEAN CORPUSCULAR HEMOGLOBIN 29.7 pg (27.0-33.0); MEAN CORPUSCULAR HGB CONC 32.3 g/dl (32.0-36.5); MEAN CORPUSCULAR VOLUME 91.9 fl (80.0-96.0); MONO % 9.7 % (2.0-8.0); NEUTROPHILS # 5.3 10^3/uL (1.5-8.5); NEUTROPHILS % 54.7 % (36.0-66.0); PLATELET COUNT, AUTOMATED 257 10^3/uL (150-450); RED BLOOD COUNT 4.82 10^6/uL (4.00-5.40); WHITE BLOOD COUNT 9.8 10^3/uL (4.0-10.0)
[2020-06-25 15:37] LABS: HEMOGLOBIN A1c 6.5 %
[2020-06-25 15:41] LABS: ALBUMIN 4.3 GM/DL (3.2-5.2); BILIRUBIN,TOTAL 0.6 MG/DL (0.2-1.0); CALCIUM LEVEL 10.1 MG/DL (8.8-10.2); CREATININE FOR GFR 1.32 MG/DL (0.55-1.30); GLOMERULAR FILTRATION RATE 41.3 (>39); MAGNESIUM LEVEL 2.4 MG/DL (1.8-2.4); POTASSIUM SERUM 4.2 MEQ/L (3.5-5.1); TOTAL PROTEIN 8.9 GM/DL (6.4-8.2)
[2020-06-25 15:50] LABS: MAU/CREAT RATIO 10.8 MCG/MG (0.0-30.0)
[2020-06-25 16:34] LABS: FREE T4 0.99 NG/DL (0.76-1.46); THYROID STIMULATING HORMONE 2.02 uIU/ML (0.358-3.740)
== END ==
LOC: M SFHCPLAZ 14:10
PROVIDERS: ATTEND Nurse Practitioner Family
DX: E03.9 Hypothyroidism, unspecified (principal); R06.02 Shortness of breath; E11.9 Type 2 diabetes mellitus without complications; E78.5 Hyperlipidemia, unspecified; I10 Essential (primary) hypertension; E53.8 Deficiency of other specified B group vitamins

== ENCOUNTER → 2020-08-26 | Outpatient (CLI) | payer MEDICARE ==
--- NOTE | 2020-08-27 10:02 | REP ---
INDICATION: EDEMA COMPARISON: None. TECHNIQUE: Real time mariscal scale and Duplex Doppler evaluation of the bilateral lower extremity arterial vasculature using linear high frequency transducer. FINDINGS: Mariscal scale and duplex doppler images demonstrate mild diffuse plaquing bilaterally. There are diffuse biphasic waveforms bilaterally. DIEGO right 1.10 and left 1.0. There is no compelling duplex Doppler sonographic evidence of hemodynamically significant stenosis bilaterally. There is no arterial occlusion. Peak systolic velocities (cm/sec) Common femoral artery: Right 179; Left 135 Profunda femoris: Right 145; Left 94 SFA (proximal): Right 172; Left 109 SFA (mid): Right 217; Left 161 SFA (distal): Right 170; Left 175 Popliteal artery: Right 94; Left 64 WILLIAMS (prox.): Right 97; Left 109 Tibioperoneal trunk: Right 75; Left 105 HEAVY COIL WINDER (prox.): Right 62; Left 62 HEAVY COIL WINDER (distal): Right 18; Left 56 WILLIAMS (distal): Right 99; Left 57 IMPRESSION: Mild diffuse plaquing bilaterally. No significant stenosis and no evidence of arterial occlusion. <Electronically signed by Sean Mariscal > 08/27/20 [id number]
== END ==
LOC: M RAD 15:25
PROVIDERS: ATTEND Nurse Practitioner Family
DX: R60.0 Localized edema (principal); I70.213 Atherosclerosis of native arteries of extremities with intermittent claudication, bilateral legs

== ENCOUNTER → 2021-06-25 | Outpatient (REF) | payer MEDICARE ==
[~2021-06-25] MED LIST changes: -MAGN400T3 PO; +MAGN400T33 PO; -OMEP-221 PO; +OMEP40CA4 PO; +OMEP40CA5 PO; -OMEP40CA97 PO
[2021-06-25 13:51] LABS: BASO # 0.1 10^3/uL (0.0-0.2); BASO % 0.7 % (0.0-1.0); EOS # 0.3 10^3/uL (0.0-0.5); EOS % 2.9 % (0.0-3.0); HEMATOCRIT 42.4 % (36.0-47.0); HEMOGLOBIN 13.8 g/dl (12.0-15.5); LYMPH # 2.5 10^3/uL (1.5-5.0); LYMPH % 25.7 % (24.0-44.0); MEAN CORPUSCULAR HEMOGLOBIN 30.5 pg (27.0-33.0); MEAN CORPUSCULAR HGB CONC 32.5 g/dl (32.0-36.5); MEAN CORPUSCULAR VOLUME 93.6 fl (80.0-96.0); MONO # 0.9 10^3/uL (0.0-0.8); MONO % 9.8 % (2.0-8.0); NEUTROPHILS # 5.8 10^3/uL (1.5-8.5); NEUTROPHILS % 60.5 % (36.0-66.0); PLATELET COUNT, AUTOMATED 252 10^3/uL (150-450); RED BLOOD COUNT 4.53 10^6/uL (4.00-5.40); WHITE BLOOD COUNT 9.6 10^3/uL (4.0-10.0)
[2021-06-25 14:29] LABS: ALBUMIN 3.9 GM/DL (3.2-5.2); BILIRUBIN,TOTAL 0.7 MG/DL (0.2-1.0); CALCIUM LEVEL 9.9 MG/DL (8.8-10.2); CHOLESTEROL RISK RATIO 4.161 (<5); CREATININE FOR GFR 1.38 MG/DL (0.55-1.30); FREE T4 0.94 NG/DL (0.76-1.46); GLOMERULAR FILTRATION RATE 39.2 (>32); MAGNESIUM LEVEL 2.3 MG/DL (1.8-2.4); POTASSIUM SERUM 4.1 MEQ/L (3.5-5.1); THYROID STIMULATING HORMONE 3.14 uIU/ML (0.358-3.740); TOTAL 25(OH) VITAMIN D 18.6 NG/ML (30.0-100.0); TOTAL PROTEIN 7.9 GM/DL (6.4-8.2)
[2021-06-25 14:34] LABS: MALB URINE SIEMENS 13.5 MG/L; MAU/CREAT RATIO 7.8 MCG/MG (0.0-30.0)
[2021-06-25 15:38] LABS: HEMOGLOBIN A1c 6.2 %
== END ==
LOC: M SFHCADAM 10:18
PROVIDERS: ATTEND Nurse Practitioner Family
DX: E11.9 Type 2 diabetes mellitus without complications (principal); I10 Essential (primary) hypertension; E03.9 Hypothyroidism, unspecified; E78.5 Hyperlipidemia, unspecified; E55.9 Vitamin D deficiency, unspecified; E53.8 Deficiency of other specified B group vitamins

== ENCOUNTER → 2021-12-05 | Outpatient (CLI) | payer MEDICARE ==
[2021-12-05 17:44] LABS: HEMATOCRIT 46.8 % (36.0-47.0)
[2021-12-05 17:45] LABS: BASO % 0.6 % (0.0-1.0); EOS % 0.7 % (0.0-3.0); HEMATOCRIT 48.6 % (36.0-47.0); HEMOGLOBIN 15.2 g/dl (12.0-15.5); LYMPH # 1.4 10^3/uL (1.5-5.0); LYMPH % 25.8 % (24.0-44.0); MEAN CORPUSCULAR HEMOGLOBIN 26.8 pg (27.0-33.0); MEAN CORPUSCULAR HGB CONC 31.3 g/dl (32.0-36.5); MEAN CORPUSCULAR VOLUME 85.7 fl (80.0-96.0); MONO # 0.6 10^3/uL (0.0-0.8); MONO % 11.3 % (2.0-8.0); NEUTROPHILS # 3.3 10^3/uL (1.5-8.5); NEUTROPHILS % 61.4 % (36.0-66.0); PLATELET COUNT, AUTOMATED 203 10^3/uL (150-450); RED BLOOD COUNT 5.67 10^6/uL (4.00-5.40); WHITE BLOOD COUNT 5.4 10^3/uL (4.0-10.0)
[2021-12-05 17:59] LABS: HEMOGLOBIN A1c 6.3 %
[2021-12-05 18:56] LABS: ALBUMIN 3.7 GM/DL (3.2-5.2); ALT/SGPT 18 U/L (12-78); BILIRUBIN,TOTAL 1.1 MG/DL (0.2-1.0); BLOOD UREA NITROGEN 31 MG/DL (7-18); CALCIUM LEVEL 9.3 MG/DL (8.8-10.2); CARBON DIOXIDE LEVEL 28 MEQ/L (21-32); CHLORIDE LEVEL 97 MEQ/L (98-107); CHOLESTEROL LEVEL 107 MG/DL (<200); CHOLESTEROL RISK RATIO 2.229 (<5); CREATININE FOR GFR 2.06 MG/DL (0.55-1.30); FREE T4 1.48 NG/DL (0.76-1.46); GLOMERULAR FILTRATION RATE 24.6 (>32); GLUCOSE, FASTING 105 MG/DL (70-100); HDL CHOLESTEROL 48 MG/DL (>40); LDL CHOLESTEROL 38 MG/DL (<100); MAGNESIUM LEVEL 1.9 MG/DL (1.8-2.4); NON-HDL-C 59 MG/DL; NT-PRO BNP 59666 PG/ML (<450); POTASSIUM SERUM 3.3 MEQ/L (3.5-5.1); SODIUM LEVEL 135 MEQ/L (136-145); TOTAL 25(OH) VITAMIN D 30.5 NG/ML (30.0-100.0); TOTAL PROTEIN 7.9 GM/DL (6.4-8.2); TRIGLYCERIDES LEVEL 105 MG/DL (<150); VITAMIN B12 LEVEL > 2000 PG/ML (247-911)
== END ==
LOC: M PLALAB 15:50
PROVIDERS: ATTEND Nurse Practitioner Family
DX: R41.3 Other amnesia (principal); E11.9 Type 2 diabetes mellitus without complications; I10 Essential (primary) hypertension; E55.9 Vitamin D deficiency, unspecified; E78.5 Hyperlipidemia, unspecified; E03.9 Hypothyroidism, unspecified; Z79.899 Other long term (current) drug therapy

== ENCOUNTER → 2021-12-12 | Outpatient (CLI) | payer MEDICARE ==
[2021-12-12 14:15] LABS: MALB URINE SIEMENS 42.9 MG/L; MAU/CREAT RATIO 37.6 MCG/MG (0.0-30.0)
[2021-12-12 14:20] LABS: CALCIUM LEVEL 10.1 MG/DL (8.8-10.2); CREATININE FOR GFR 2.55 MG/DL (0.55-1.30); GLOMERULAR FILTRATION RATE 19.2 (>32); MAGNESIUM LEVEL 2.2 MG/DL (1.8-2.4); POTASSIUM SERUM 4.1 MEQ/L (3.5-5.1)
== END ==
LOC: M PLALAB 11:58
PROVIDERS: ATTEND Nurse Practitioner Family
DX: E11.9 Type 2 diabetes mellitus without complications (principal); I50.9 Heart failure, unspecified

== ENCOUNTER → 2021-12-19 | Outpatient (REF) | payer MEDICARE ==
[2021-12-19 18:57] LABS: CALCIUM LEVEL 9.9 MG/DL (8.8-10.2); CREATININE FOR GFR 2.37 MG/DL (0.55-1.30); GLOMERULAR FILTRATION RATE 20.9 (>32); MAGNESIUM LEVEL 2.2 MG/DL (1.8-2.4); POTASSIUM SERUM 4.4 MEQ/L (3.5-5.1)
== END ==
LOC: M PLALAB 16:52
PROVIDERS: ATTEND Nurse Practitioner Family
DX: I50.9 Heart failure, unspecified (principal)

== ENCOUNTER 2021-12-29 21:25 | Inpatient (IN) | payer MEDICARE ==
[~2021-12-29] VITALS: Ht 157.5 cm; Wt 63.3 kg
[2021-12-29 23:15] LABS: BASO % 0.3 % (0.0-1.0); EOS % 0.1 % (0.0-3.0); HEMATOCRIT 45.5 % (36.0-47.0); HEMOGLOBIN 14.2 g/dl (12.0-15.5); LYMPH # 0.9 10^3/uL (1.5-5.0); LYMPH % 12.2 % (24.0-44.0); MEAN CORPUSCULAR HEMOGLOBIN 27.7 pg (27.0-33.0); MEAN CORPUSCULAR HGB CONC 31.2 g/dl (32.0-36.5); MEAN CORPUSCULAR VOLUME 88.9 fl (80.0-96.0); MONO # 0.8 10^3/uL (0.0-0.8); MONO % 11.3 % (2.0-8.0); NEUTROPHILS # 5.5 10^3/uL (1.5-8.5); NEUTROPHILS % 75.7 % (36.0-66.0); RED BLOOD COUNT 5.12 10^6/uL (4.00-5.40); WHITE BLOOD COUNT 7.3 10^3/uL (4.0-10.0)
[2021-12-30 00:56] LABS: CPK CREATINE PHOSPHOKINASE 54 U/L (26-192)
[2021-12-30 01:32] LABS: ALBUMIN 2.7 GM/DL (3.2-5.2); BILIRUBIN,TOTAL 3.1 MG/DL (0.2-1.0); CALCIUM LEVEL 7.7 MG/DL (8.8-10.2); CREATININE FOR GFR 2.56 MG/DL (0.55-1.30); GLOMERULAR FILTRATION RATE 19.1 (>32); MAGNESIUM LEVEL 1.6 MG/DL (1.8-2.4); POTASSIUM SERUM 4.3 MEQ/L (3.5-5.1); TOTAL PROTEIN 5.3 GM/DL (6.4-8.2)
[2021-12-30] MEDS: INSULIN LISPRO (NovoLOG) PER UNIT SC SCH ×4 (06:00→20:43)
[2021-12-30] MEDS ORDERED: GLUCOSE 4GM CHEW TABLET PO PRN (06:50)
[2021-12-30] MEDS ORDERED: GLUCAGON INJ 1MG VIAL SC PRN (06:50)
[2021-12-30] MEDS ORDERED: DEXTROSE 50% 50 ML SYRINGE IV PRN (06:50)
[2021-12-30] MEDS ORDERED: ALPRAZolam 0.5 MG TAB PO ONE (07:30)
[2021-12-30] MEDS ORDERED: FUROSEMIDE 40MG/4ML VIAL (J1940) IV ONE (09:00)
[2021-12-30] MEDS ORDERED: BYST10TA2 PO (11:09)
[2021-12-30] MEDS ORDERED: ATOR1TAB21 PO (11:09)
[2021-12-30] MEDS ORDERED: LEVO50TA5 PO (11:09)
[2021-12-30] MEDS ORDERED: XANA0.5T PO (11:09)
[2021-12-30] MEDS ORDERED: CYAN100050 PO (11:16)
[2021-12-30] MEDS ORDERED: LEXA5TAB13 PO (11:16)
[2021-12-30] MEDS ORDERED: ASPI81TA26 PO (11:16)
[2021-12-30] MEDS ORDERED: PEPC40TA12 PO (11:16)
[2021-12-30] MEDS ORDERED: RA N1TAB PO (11:16)
[2021-12-30] MEDS ORDERED: FOLI1TAB11 PO (11:16)
[2021-12-30] MEDS ORDERED: POTA-150 PO (11:16)
[2021-12-30 11:30] VITALS: BP 111/58
[2021-12-30] MEDS ORDERED: FURO20TA2 PO (11:30)
[2021-12-30] MEDS ORDERED: HOME MED LIST COMPLETE! XX SCH (11:35)
[2021-12-30 13:45] VITALS: BP 112/58
[2021-12-30 13:54] LABS: PH BODY FLUID 7.657 UNITS (NOT ESTABLISHED); SOURCE, BODY FLUID pH PLEURAL
[2021-12-30 14:08] LABS: APPEARANCE, BODY FLUID CLEAR (CLEAR); PLEURAL FL COLOR YELLOW (COLORLESS); SOURCE, BODY FLUID PLEURAL
[2021-12-30 14:43] LABS: CHOLESTEROL, BODY FLUID < 50 MG/DL (NOT ESTABLISHED); LDH, BODY FLUID 103 U/L (NOT ESTABLISHED); SOURCE, BODY FLUID CHOL PLEURAL; SOURCE, BODY FLUID GLUCOSE PLEURAL; SOURCE, BODY FLUID LDH PLEURAL; SOURCE, BODY FLUID TRIG PLEURAL; TRIGLYCERIDE, BODY FLUID 51 MG/DL (NOT ESTABLISHED)
[2021-12-30 14:44] LABS: HEMATOCRIT 44.2 % (36.0-47.0); HEMOGLOBIN 13.8 g/dl (12.0-15.5); MEAN CORPUSCULAR HEMOGLOBIN 27.7 pg (27.0-33.0); MEAN CORPUSCULAR HGB CONC 31.2 g/dl (32.0-36.5); MEAN CORPUSCULAR VOLUME 88.8 fl (80.0-96.0); RED BLOOD COUNT 4.98 10^6/uL (4.00-5.40); WHITE BLOOD COUNT 6.8 10^3/uL (4.0-10.0)
[2021-12-30 14:44] LABS: PLTBLUE- EDTA FREE CALC 64 K/mm3 (172-450); PLTBLUE- EDTA FREE MACHINE 58 10^3/uL (172-450)
[2021-12-30 14:45] LABS: SOURCE, BODY FLUID ALBUMIN PLEURAL; SOURCE, BODY FLUID TOT PROTEIN PLEURAL; TOTAL PROTEIN, BODY FLUID 2.8 G/DL (NOT ESTABLISHED)
[2021-12-30 14:48] LABS: INR 2.51; PARTIAL THROMBOPLASTIN TIME 39.7 SECONDS (24.8-34.2); PROTHROMBIN TIME 27.5 SECONDS (12.5-14.5)
[2021-12-30 15:05] LABS: BILIRUBIN,DIRECT 2.4 MG/DL (0.0-0.2)
[2021-12-30 15:24] LABS: PLATELET COUNT, AUTOMATED 95 10^3/uL (150-450)
[2021-12-30 16:00] VITALS: BP 105/58
[2021-12-30 16:10] LABS: ALBUMIN 3.3 GM/DL (3.2-5.2); ALT/SGPT 519 U/L (12-78); BILIRUBIN,TOTAL 3.5 MG/DL (0.2-1.0); BLOOD UREA NITROGEN 39 MG/DL (7-18); CALCIUM LEVEL 9.6 MG/DL (8.8-10.2); CARBON DIOXIDE LEVEL 26 MEQ/L (21-32); CHLORIDE LEVEL 102 MEQ/L (98-107); CREATININE FOR GFR 3.14 MG/DL (0.55-1.30); GLOMERULAR FILTRATION RATE 15.1 (>32); GLUCOSE, FASTING 87 MG/DL (70-100); MAGNESIUM LEVEL 2.3 MG/DL (1.8-2.4); PHOSPHORUS LEVEL 4.4 MG/DL (2.5-4.9); POTASSIUM SERUM 4.7 MEQ/L (3.5-5.1); SODIUM LEVEL 140 MEQ/L (136-145); TOTAL PROTEIN 6.6 GM/DL (6.4-8.2)
[2021-12-30] MEDS: NEBIVOLOL 5 MG TAB (BYSTOLIC) PO SCH (16:46)
[2021-12-30 16:51] LABS: FREE T4 1.59 NG/DL (0.76-1.46)
[2021-12-30] MEDS: FOLIC ACID 1MG TAB PO SCH (17:09)
[2021-12-30] MEDS: ASPIRIN 81MG ENTERIC TABLET PO SCH (17:09)
[2021-12-30] MEDS: FUROSEMIDE injection 250 MG in D5W 225 ML IV SCH (17:09)
[2021-12-30 17:25] LABS: HEPATITIS B SURFACE ANTIGEN NEGATIVE (NEGATIVE)
[2021-12-30 17:36] LABS: ACETAMINOPHEN LEVEL < 2.0 UG/ML (10.0-30.0)
[2021-12-30 17:52] LABS: HEPATITIS B CORE ANTIBODY IGM NEGATIVE (NEGATIVE); HEPATITIS C VIRUS ABY INDEX < 0.0 INDEX (<0.8)
[2021-12-30] MEDS ORDERED: HEPARIN SOD (PORCINE) 5000UNITS/ML 1ML VIAL/SYRINGE SC SCH (18:00)
[2021-12-30] MEDS: ESCITALOPRAM OXALATE 5MG TABLET (LEXAPRO) PO SCH (18:24)
[2021-12-30 20:00] VITALS: BP 114/61
[2021-12-30] MEDS: POTASSIUM CHLORIDE 10MEQ SR TABLET PO SCH (20:12)
[2021-12-30] MEDS: ATORVASTATIN 20 MG TAB PO SCH (20:12)
[2021-12-30] MEDS: LEVOTHYROXINE 50MCG TABLET (0.05MG) PO SCH (20:12)
[2021-12-30] MEDS ORDERED: ALPRAZolam 0.5 MG TAB PO SCH (21:00)
[2021-12-31] VITALS: BP 99/53
[2021-12-31 04:00] VITALS: BP 92/54
[2021-12-31] MEDS ORDERED: ALPRAZolam 0.5 MG TAB PO ONE (06:00)
[2021-12-31 06:10] LABS: HEMATOCRIT 47.9 % (36.0-47.0); HEMOGLOBIN 14.5 g/dl (12.0-15.5); MEAN CORPUSCULAR HEMOGLOBIN 27.1 pg (27.0-33.0); MEAN CORPUSCULAR HGB CONC 30.3 g/dl (32.0-36.5); MEAN CORPUSCULAR VOLUME 89.4 fl (80.0-96.0); PLATELET COUNT, AUTOMATED 108 10^3/uL (150-450); RED BLOOD COUNT 5.36 10^6/uL (4.00-5.40); WHITE BLOOD COUNT 6.7 10^3/uL (4.0-10.0)
[2021-12-31 06:20] LABS: INR 2.14; PROTHROMBIN TIME 24.3 SECONDS (12.5-14.5)
[2021-12-31 06:41] LABS: ALBUMIN 3.1 GM/DL (3.2-5.2); BILIRUBIN,TOTAL 3.7 MG/DL (0.2-1.0); CALCIUM LEVEL 9.1 MG/DL (8.8-10.2); CREATININE FOR GFR 3.02 MG/DL (0.55-1.30); GLOMERULAR FILTRATION RATE 15.8 (>32); MAGNESIUM LEVEL 2.4 MG/DL (1.8-2.4); PHOSPHORUS LEVEL 3.9 MG/DL (2.5-4.9); TOTAL PROTEIN 6.8 GM/DL (6.4-8.2)
[2021-12-31] MEDS: INSULIN LISPRO (NovoLOG) PER UNIT SC SCH ×4 (07:30→20:38)
[2021-12-31 08:00] VITALS: BP 102/52
[2021-12-31] MEDS: FOLIC ACID 1MG TAB PO SCH (08:45)
[2021-12-31] MEDS: POTASSIUM CHLORIDE 10MEQ SR TABLET PO SCH ×2 (08:45→21:04)
[2021-12-31] MEDS: ESCITALOPRAM OXALATE 5MG TABLET (LEXAPRO) PO SCH (08:45)
[2021-12-31] MEDS: ASPIRIN 81MG ENTERIC TABLET PO SCH (08:45)
[2021-12-31] MEDS: NEBIVOLOL 5 MG TAB (BYSTOLIC) PO SCH (08:55)
[2021-12-31 12:00] VITALS: BP 113/58
[2021-12-31] MEDS: OMEPRAZOLE 20MG CAP PO SCH (15:52)
[2021-12-31] MEDS: HEPARIN SOD (PORCINE) 5000UNITS/ML 1ML VIAL/SYRINGE SQ SCH ×2 (15:52→21:05)
[2021-12-31] MEDS: FUROSEMIDE injection 250 MG in D5W 225 ML IV SCH (15:53)
[2021-12-31 15:55] LABS: APPEARANCE, URINE MANUAL CLEAR (CLEAR); BILIRUBIN, URINE MANUAL NEGATIVE (NEGATIVE); BLOOD URINE MANUAL POSITIVE (NEGATIVE); COLOR, URINE MANUAL LT YELLOW (YELLOW); GLUCOSE, URINE (UA) MANUAL NEGATIVE (NEGATIVE); KETONE, URINE MANUAL NEGATIVE (NEGATIVE); LEUKOCYTE ESTERASE, URINE MAN POSITIVE (NEGATIVE); NITRITE, URINE MANUAL NEGATIVE (NEGATIVE); PROTEIN, URINE MANUAL TRACE mg/dL (NEGATIVE); SPECIFIC GRAVITY,URINE MANUAL 1.015 (1.002-1.035); UROBILINOGEN, URINE MANUAL NORMAL (NORMAL)
[2021-12-31 16:00] VITALS: BP 98/52
[2021-12-31 16:36] LABS: RBC, URINE 15-20 /hpf (0-3); SQUAMOUS EPITHELIAL CELL URINE SMALL AMOUNT /hpf (SMALL AMT); WBC, URINE 20-30 /hpf (0-3)
[2021-12-31 16:37] LABS: BACTERIA, URINE LARGE AMOUNT
[2021-12-31 19:11] LABS: ALBUMIN 3.2 GM/DL (3.2-5.2); CALCIUM LEVEL 9.4 MG/DL (8.8-10.2); CREATININE FOR GFR 2.95 MG/DL (0.55-1.30); GLOMERULAR FILTRATION RATE 16.3 (>32); MAGNESIUM LEVEL 2.4 MG/DL (1.8-2.4); PHOSPHORUS LEVEL 3.4 MG/DL (2.5-4.9); POTASSIUM SERUM 3.9 MEQ/L (3.5-5.1); TOTAL PROTEIN 6.9 GM/DL (6.4-8.2)
[2021-12-31 20:00] VITALS: BP 115/59
[2021-12-31] MEDS: ALPRAZolam 0.25 MG TAB PO SCH (20:38)
[2021-12-31] MEDS: CEFDINIR 300 MG CAP (OMNICEF) PO SCH (21:04)
[2021-12-31] MEDS: ATORVASTATIN 20 MG TAB PO SCH (21:04)
[2021-12-31] MEDS: LEVOTHYROXINE 50MCG TABLET (0.05MG) PO SCH (21:04)
[2022-01-01] VITALS: BP 98/50
[2022-01-01 04:00] VITALS: BP 105/52
[2022-01-01 05:01] LABS: BASO % 0.3 % (0.0-1.0); EOS # 0.1 10^3/uL (0.0-0.5); EOS % 1.5 % (0.0-3.0); HEMATOCRIT 46.6 % (36.0-47.0); HEMOGLOBIN 14.4 g/dl (12.0-15.5); LYMPH # 0.8 10^3/uL (1.5-5.0); LYMPH % 12.7 % (24.0-44.0); MEAN CORPUSCULAR HEMOGLOBIN 27.7 pg (27.0-33.0); MEAN CORPUSCULAR HGB CONC 30.9 g/dl (32.0-36.5); MEAN CORPUSCULAR VOLUME 89.6 fl (80.0-96.0); MONO # 0.6 10^3/uL (0.0-0.8); MONO % 9.6 % (2.0-8.0); NEUTROPHILS # 4.9 10^3/uL (1.5-8.5); NEUTROPHILS % 75.4 % (36.0-66.0); WHITE BLOOD COUNT 6.6 10^3/uL (4.0-10.0)
[2022-01-01 05:07] LABS: PLATELET COUNT, AUTOMATED 98 10^3/uL (150-450)
[2022-01-01 05:12] LABS: INR 1.78
[2022-01-01] MEDS: HEPARIN SOD (PORCINE) 5000UNITS/ML 1ML VIAL/SYRINGE SQ SCH ×3 (05:12→22:12)
[2022-01-01 05:32] LABS: ALBUMIN 2.8 GM/DL (3.2-5.2); BILIRUBIN,TOTAL 2.5 MG/DL (0.2-1.0); CALCIUM LEVEL 8.7 MG/DL (8.8-10.2); CREATININE FOR GFR 2.74 MG/DL (0.55-1.30); GLOMERULAR FILTRATION RATE 17.7 (>32); POTASSIUM SERUM 3.5 MEQ/L (3.5-5.1); TOTAL PROTEIN 6.2 GM/DL (6.4-8.2)
[2022-01-01] MEDS: INSULIN LISPRO (NovoLOG) PER UNIT SC SCH ×4 (07:30→20:55)
[2022-01-01 08:00] VITALS: BP 111/55
[2022-01-01] MEDS: NEBIVOLOL 5 MG TAB (BYSTOLIC) PO SCH (08:04)
[2022-01-01] MEDS: ASPIRIN 81MG ENTERIC TABLET PO SCH (09:33)
[2022-01-01] MEDS: FOLIC ACID 1MG TAB PO SCH (09:34)
[2022-01-01] MEDS: POTASSIUM CHLORIDE 10MEQ SR TABLET PO SCH (09:34)
[2022-01-01] MEDS: OMEPRAZOLE 20MG CAP PO SCH (09:34)
[2022-01-01] MEDS: ESCITALOPRAM OXALATE 5MG TABLET (LEXAPRO) PO SCH (09:34)
[2022-01-01] MEDS ORDERED: POTASSIUM CHLORIDE 10MEQ SR TABLET PO ONE (11:30)
[2022-01-01 12:00] VITALS: BP 107/54
[2022-01-01] MEDS: acetaZOLAMIDE 250MG TAB PO SCH ×3 (13:59→20:36)
[2022-01-01 16:00] VITALS: BP 103/59
[2022-01-01 20:00] VITALS: BP 98/50
[2022-01-01] MEDS: LEVOTHYROXINE 50MCG TABLET (0.05MG) PO SCH (20:36)
[2022-01-01] MEDS: CEFDINIR 300 MG CAP (OMNICEF) PO SCH (20:36)
[2022-01-01] MEDS: ATORVASTATIN 20 MG TAB PO SCH (20:36)
[2022-01-01] MEDS: ALPRAZolam 0.25 MG TAB PO SCH (20:37)
[2022-01-02] VITALS (8 sets, daily range): BP systolic 96–115; BP diastolic 50–63
[2022-01-02] MEDS: HEPARIN SOD (PORCINE) 5000UNITS/ML 1ML VIAL/SYRINGE SQ SCH ×3 (05:07→21:10)
[2022-01-02 05:18] LABS: BASO % 0.2 % (0.0-1.0); EOS # 0.1 10^3/uL (0.0-0.5); EOS % 1.3 % (0.0-3.0); HEMATOCRIT 46.9 % (36.0-47.0); HEMOGLOBIN 14.7 g/dl (12.0-15.5); LYMPH # 0.8 10^3/uL (1.5-5.0); LYMPH % 12.6 % (24.0-44.0); MEAN CORPUSCULAR HEMOGLOBIN 27.8 pg (27.0-33.0); MEAN CORPUSCULAR HGB CONC 31.3 g/dl (32.0-36.5); MEAN CORPUSCULAR VOLUME 88.7 fl (80.0-96.0); MONO # 0.8 10^3/uL (0.0-0.8); MONO % 12.3 % (2.0-8.0); NEUTROPHILS # 4.6 10^3/uL (1.5-8.5); NEUTROPHILS % 73.1 % (36.0-66.0); RED BLOOD COUNT 5.29 10^6/uL (4.00-5.40); WHITE BLOOD COUNT 6.3 10^3/uL (4.0-10.0)
[2022-01-02 05:20] LABS: PLATELET COUNT, AUTOMATED 90 10^3/uL (150-450)
[2022-01-02 05:28] LABS: INR 1.44; PROTHROMBIN TIME 17.8 SECONDS (12.5-14.5)
[2022-01-02 05:29] LABS: PARTIAL THROMBOPLASTIN TIME 36.8 SECONDS (24.8-34.2)
[2022-01-02 05:55] LABS: ALBUMIN 2.6 GM/DL (3.2-5.2); BILIRUBIN,TOTAL 1.9 MG/DL (0.2-1.0); CALCIUM LEVEL 8.7 MG/DL (8.8-10.2); CREATININE FOR GFR 2.2 MG/DL (0.55-1.30); GLOMERULAR FILTRATION RATE 22.8 (>32); MAGNESIUM LEVEL 2.3 MG/DL (1.8-2.4); PHOSPHORUS LEVEL 2.4 MG/DL (2.5-4.9); POTASSIUM SERUM 3.4 MEQ/L (3.5-5.1); TOTAL PROTEIN 6.3 GM/DL (6.4-8.2)
[2022-01-02] MEDS: INSULIN LISPRO (NovoLOG) PER UNIT SC SCH ×4 (07:30→21:00)
[2022-01-02] MEDS: OMEPRAZOLE 20MG CAP PO SCH (08:51)
[2022-01-02] MEDS: NEBIVOLOL 5 MG TAB (BYSTOLIC) PO SCH (08:51)
[2022-01-02] MEDS: FOLIC ACID 1MG TAB PO SCH (08:51)
[2022-01-02] MEDS: ASPIRIN 81MG ENTERIC TABLET PO SCH (08:51)
[2022-01-02] MEDS: ESCITALOPRAM OXALATE 5MG TABLET (LEXAPRO) PO SCH (08:51)
[2022-01-02] MEDS: acetaZOLAMIDE 250MG TAB PO SCH ×2 (08:51→11:40)
[2022-01-02] MEDS: POTASSIUM CHLORIDE 10MEQ SR TABLET PO SCH ×2 (08:52→20:09)
[2022-01-02] MEDS ORDERED: SODIUM PHOSPHATE INJ 20 MMOL in D5W 250 ML IV ONE (09:00)
[2022-01-02] MEDS ORDERED: ALPRAZolam 0.25 MG TAB PO PRN (10:10)
[2022-01-02] MEDS ORDERED: FUROSEMIDE 40MG/4ML VIAL (J1940) IV SCH (18:00)
[2022-01-02] MEDS: LEVOTHYROXINE 50MCG TABLET (0.05MG) PO SCH (20:08)
[2022-01-02] MEDS: ATORVASTATIN 20 MG TAB PO SCH (20:08)
[2022-01-02] MEDS: CEFDINIR 300 MG CAP (OMNICEF) PO SCH (20:08)
[2022-01-03] VITALS (8 sets, daily range): BP systolic 104–120; BP diastolic 51–60
[2022-01-03 05:09] LABS: HEMATOCRIT 46.3 % (36.0-47.0); HEMOGLOBIN 14.5 g/dl (12.0-15.5); MEAN CORPUSCULAR HEMOGLOBIN 27.6 pg (27.0-33.0); MEAN CORPUSCULAR HGB CONC 31.3 g/dl (32.0-36.5); MEAN CORPUSCULAR VOLUME 88.2 fl (80.0-96.0); PLATELET COUNT, AUTOMATED 90 10^3/uL (150-450); RED BLOOD COUNT 5.25 10^6/uL (4.00-5.40)
[2022-01-03] MEDS: HEPARIN SOD (PORCINE) 5000UNITS/ML 1ML VIAL/SYRINGE SQ SCH ×3 (05:38→22:07)
[2022-01-03 05:44] LABS: ALBUMIN 2.6 GM/DL (3.2-5.2); BILIRUBIN,TOTAL 1.9 MG/DL (0.2-1.0); CALCIUM LEVEL 8.6 MG/DL (8.8-10.2); CREATININE FOR GFR 1.86 MG/DL (0.55-1.30); GLOMERULAR FILTRATION RATE 27.7 (>32); MAGNESIUM LEVEL 2.2 MG/DL (1.8-2.4); PHOSPHORUS LEVEL 2.9 MG/DL (2.5-4.9); POTASSIUM SERUM 3.2 MEQ/L (3.5-5.1); TOTAL PROTEIN 6.3 GM/DL (6.4-8.2)
[2022-01-03] MEDS: INSULIN LISPRO (NovoLOG) PER UNIT SC SCH ×4 (07:30→22:07)
[2022-01-03] MEDS: POTASSIUM CHLORIDE 10MEQ SR TABLET PO SCH ×2 (08:05→22:05)
[2022-01-03] MEDS: OMEPRAZOLE 20MG CAP PO SCH (08:06)
[2022-01-03] MEDS: FOLIC ACID 1MG TAB PO SCH (08:06)
[2022-01-03] MEDS: ASPIRIN 81MG ENTERIC TABLET PO SCH (08:06)
[2022-01-03] MEDS: ESCITALOPRAM OXALATE 5MG TABLET (LEXAPRO) PO SCH (08:06)
[2022-01-03] MEDS ORDERED: METOPROLOL SUCC *XL* 12.5MG PER 1/2 TAB (TopROL *XL*) PO SCH ×2 (09:00→21:00)
[2022-01-03] MEDS ORDERED: TORSEMIDE 20 MG TAB PO SCH (09:00)
[2022-01-03] MEDS ORDERED: SPIRONOLACTONE 25 MG TAB PO SCH (12:00)
[2022-01-03] MEDS: ENTRESTO 24-26MG TABLET (SACUBITRIL/VALSARTAN) PO SCH ×2 (13:48→22:06)
[2022-01-03] MEDS ORDERED: POTASSIUM CHLORIDE 10MEQ SR TABLET PO ONE (13:55)
[2022-01-03] MEDS: CEFDINIR 300 MG CAP (OMNICEF) PO SCH (22:05)
[2022-01-03] MEDS: ATORVASTATIN 20 MG TAB PO SCH (22:05)
[2022-01-03] MEDS: LEVOTHYROXINE 50MCG TABLET (0.05MG) PO SCH (22:06)
[2022-01-04 05:00] VITALS: BP 105/55
[2022-01-04] MEDS: HEPARIN SOD (PORCINE) 5000UNITS/ML 1ML VIAL/SYRINGE SQ SCH ×2 (05:03→14:00)
[2022-01-04 05:11] VITALS: BP 98/58
[2022-01-04 06:38] LABS: HEMATOCRIT 49.7 % (36.0-47.0); HEMOGLOBIN 15.3 g/dl (12.0-15.5); MEAN CORPUSCULAR HEMOGLOBIN 27.5 pg (27.0-33.0); MEAN CORPUSCULAR HGB CONC 30.8 g/dl (32.0-36.5); MEAN CORPUSCULAR VOLUME 89.4 fl (80.0-96.0); PLATELET COUNT, AUTOMATED 124 10^3/uL (150-450); RED BLOOD COUNT 5.56 10^6/uL (4.00-5.40)
[2022-01-04 07:20] LABS: ALBUMIN 2.7 GM/DL (3.2-5.2); BILIRUBIN,TOTAL 2.1 MG/DL (0.2-1.0); CALCIUM LEVEL 8.9 MG/DL (8.8-10.2); CREATININE FOR GFR 1.73 MG/DL (0.55-1.30); GLOMERULAR FILTRATION RATE 30.1 (>32); MAGNESIUM LEVEL 2.4 MG/DL (1.8-2.4); PHOSPHORUS LEVEL 2.7 MG/DL (2.5-4.9); POTASSIUM SERUM 4.1 MEQ/L (3.5-5.1); TOTAL PROTEIN 6.4 GM/DL (6.4-8.2)
[2022-01-04] MEDS: INSULIN LISPRO (NovoLOG) PER UNIT SC SCH ×2 (07:30→12:39)
[2022-01-04 08:08] VITALS: BP 110/68
[2022-01-04] MEDS ORDERED: METOPROLOL SUCC *XL* 12.5MG PER 1/2 TAB (TopROL *XL*) PO SCH (09:00)
[2022-01-04] MEDS ORDERED: TORSEMIDE 20 MG TAB PO SCH (09:00)
[2022-01-04] MEDS: ENTRESTO 24-26MG TABLET (SACUBITRIL/VALSARTAN) PO SCH (09:14)
[2022-01-04] MEDS: ESCITALOPRAM OXALATE 5MG TABLET (LEXAPRO) PO SCH (09:14)
[2022-01-04] MEDS: FOLIC ACID 1MG TAB PO SCH (09:14)
[2022-01-04] MEDS: ASPIRIN 81MG ENTERIC TABLET PO SCH (09:14)
[2022-01-04] MEDS: OMEPRAZOLE 20MG CAP PO SCH (09:14)
[2022-01-04] MEDS: POTASSIUM CHLORIDE 10MEQ SR TABLET PO SCH ×2 (09:15→09:28)
[2022-01-04] MEDS ORDERED: METO1TAB32 PO (12:44)
[2022-01-04] MEDS ORDERED: CEFD300CAP PO (12:44)
[2022-01-04] MEDS ORDERED: TORS20TA2 PO (12:44)
[2022-01-04] MEDS ORDERED: ENTR1TAB PO (12:44)
== END 2022-01-04 16:39 | disposition home health service (06) | DRG 292 ==
LOC: M ED 21:25 → EDBD 21:25 → M ED INP 12-30 06:50 → ENRESERV 12-30 10:43 → M ICU 12-30 11:29 → M MSPAV 01-03 17:10
PROVIDERS: ADMIT Internal Medicine; ATTEND Internal Medicine
PROC: 0W993ZZ Drainage of Right Pleural Cavity, Percutaneous Approach (ICD-10-PCS; principal; 2021-12-30 15:00)
DX: I50.23 Acute on chronic systolic (congestive) heart failure (principal); R17 Unspecified jaundice; J90 Pleural effusion, not elsewhere classified; N39.0 Urinary tract infection, site not specified; N17.9 Acute kidney failure, unspecified; E87.3 Alkalosis; I47.29 Other ventricular tachycardia; R60.1 Generalized edema; E03.9 Hypothyroidism, unspecified; E11.9 Type 2 diabetes mellitus without complications; F03.90 Unspecified dementia, unspecified severity, without behavioral disturbance, psychotic disturbance, mood disturbance, and anxiety; F41.0 Panic disorder [episodic paroxysmal anxiety]; Z66 Do not resuscitate; D69.6 Thrombocytopenia, unspecified; E78.5 Hyperlipidemia, unspecified; K21.9 Gastro-esophageal reflux disease without esophagitis; I71.40 Abdominal aortic aneurysm, without rupture, unspecified; R94.5 Abnormal results of liver function studies; R74.01 Elevation of levels of liver transaminase levels; Z79.82 Long term (current) use of aspirin; Z79.899 Other long term (current) drug therapy; Z88.0 Allergy status to penicillin; Z88.2 Allergy status to sulfonamides; Z91.041 Radiographic dye allergy status